=== PATIENT | female | born 1960 | race Caucasian/White ===

== ENCOUNTER 2023-01-30 08:46 | Outpatient (OUT) | payer BC, SELFPAY ==
[2023-01-30 11:35] LABS: Alanine Aminotransferase 30 U/L (14-59); Albumin Globulin Ratio 0.9; Albumin Level 3.8 g/dL (3.4-5.0); Alkaline Phosphatase 77 U/L (46-116); Anion Gap 14.1; Aspartate Amino Transferase 12 U/L (15-37); BUN Creatinine Ratio 19.1; Bilirubin Total 0.9 mg/dL (0.2-1.0); Calcium 9.3 mg/dL (8.5-10.1); Carbon Dioxide 29.3 mmol/L (21.0-32.0); Chloride 99 mmol/L (98-107); Chol HDL Ratio 3.2; Cholesterol 156 mg/dL (<=200); Estimated GFR (African America >60 (>=60); Estimated GFR (Non-African Ame >60 (>=60); Glucose 126 mg/dL (74-106); HDL Cholesterol 49 mg/dL (40-60); Potassium 4.4 mmol/L (3.5-5.1); Sodium 138 mmol/L (136-145); Thyroid Stimulating Hormone 1.231 uIU/mL (0.358-3.740); Total Protein 7.8 g/dL (6.4-8.2); Triglycerides 95 mg/dL (<=150)
--- OUTSIDE RECORDS SUMMARY | 2023-02-27 21:15 | XMS_ITS | CCD ---
Author Name Unknown Address [address] [place] [address] Organization [facility] Care Team Providers Care Artist Scientific Name Role Phone Gris Graham Primary Care Provider DARCI CARTER Attending Unavailable DARCI CARTER Attending Unavailable DARCI CARTER Attending Unavailable Gris Graham MD Primary Care Provider Gris Graham MD Primary Care Provider DR HITESH PEREZ V Consulting Unavailable SHAIKH Kimberly TOVAR Admitting Unavailable SHAIKH Kimberly TOVAR Attending Unavailable SHAIKH Kimberly TOVAR Consulting Unavailable SHAIKH Kimberly TOVAR Attending Unavailable DR HITESH PEREZ V Consulting Unavailable SHAIKH Kimberly TOVAR Admitting Unavailable SHAIKH Kimberly TOVAR Consulting Unavailable Shaikh Tovar MD Primary Care Provider [phone] SHARRI CAMEJO Attending Unavailabl e SHAIKH TOVAR Primary Care Unavailable Allergies Allergy Classification Reported Allergen(s) Allergy Type Date of Onset Reaction(s) Facility Adhesive Tape (1 source) Adhesive Tape Substance Allergy 4 [employer] Work Phone: Angiotensin Converting Enzyme (SOPHIE) Inhibitors (1 source) Lisinopril Drug Allergy 7 [employer] Work Phone: Penicillins (antibiotic) (1 source) Penicillins Drug Allergy 4 [employer] pineapple allergenic extract (1 source) pineapple allergenic extract Drug Allergy 5 Anaphylaxis, Shortness Of Breath [facility] (12 sources) Adhesive Tape Propensity to adverse reactions to drug 4 [place] (12 sources) Lisinopril Drug Allergy 7 [place], [place] (11 sources) Penicillins Propensity to adverse reactions to drug 4 [place] (12 sources) pineapple allergenic extract Drug Allergy 5 Anaphylaxis, Shortness Of Breath [place] (1 source) Adhesive Tape; Translations: [Tape] Propensity to adverse reactions (disorder) [facility] (1 source) Penicillin; Translations: [penicillin] Drug Allergy [facility] (1 source) pinapple; Translations: [pinapple] Propensity to adverse reactions to food (disorder) [facility] (1 source) lisinipril; Translations: [lisinipril] Propensity to adverse reactions to drug (disorder) [facility] (1 source) Penicillins Propensity to adverse reactions to drug 4 [facility] Medications Current Medications Medication Drug Class(es) Dates Sig (Normalized) Sig (Original) acetaminophen 325 mg oral tablet (1 source) Start: 04-21-2020 acetaminophen (TYLENOL) tablet 650 mg acetaminophen 325 mg / HYDROcodone bitartrate 5 mg oral tablet (3 sources) Opioid Agonist Start: 04-21-2020 End: 04-24-2020 take 1 tablet by mouth every six hours as needed for pain, then take 1 tablet by mouth as needed for pain HYDROcodone-acetami nophen (NORCO) 5-325 MG per tablet Indications: Abnormal uterine bleeding due to endometrial polyp Take 1 tablet by mouth every 6 hours as needed for Pain for up to 3 days. Intended supply: 3 days. Take lowest dose possible to manage pain 10 tablet 0 04/21/2020 04/24/2020 Active Start: 04-21-2020 HYDROcodone-ac etaminophen (NORCO) 5-325 MG per tablet 1 tablet Start: 04-21-2020 End: 04-21-2020 HYDROcodone-acetaminophen (N ORCO) 5-325 MG per tablet 1 tablet 200 actuat albuterol 0.09 mg/actuat metered dose inhaler (4 sources) beta2-Adrenergic Agonist Start: 04-12-2018 take 2 puff(s) by inhalation every six hours as needed for wheezing albuterol sulfate HFA (PROAIR HFA) 108 (90 Base) MCG/ACT inhaler Inhale 2 puffs into the lungs every 6 hours as needed for Wheezing 1 Inhaler 3 04/12/2018 Active Start: 04-12-2018 take 2 puff(s) by in halation every six hours as needed for wheezing albuterol sulfate HFA (PROAIR HFA) 108 (90 Base) MCG/ACT inhaler Inhale 2 puffs into the lungs every 6 hours as needed for Wheezing 1 Inhaler 3 04/12/2018 Active albuterol sulfate HFA (PROAIR HFA) 108 (90 Base) MCG/ACT inhaler (1 source) Start: 04-12-2018 take 2 puff(s) by inhalation every six hours as needed for wheezing albuterol sulfate HFA (PROAIR HFA) 108 (90 Base) MCG/ACT inhaler Inhale 2 puffs into the lungs every 6 hours as needed for Wheezing 1 Inhaler 3 04/12/2018 Active apixaban 5 mg oral tablet (14 sources) Factor Xa Inhibitor Start: 01-05-2022 take 1 tablet by mouth twice daily apixaban (ELIQUIS) 5 MG TABS tablet TAKE 1 TABLET BY MOUTH TWICE A DAY 60 tablet 1 01/05/2022 Active Start: 07-23-2020 take 1 tablet by keith th twice daily apixaban (ELIQUIS) 5 MG TABS tablet TAKE 1 TABLET BY MOUTH TWICE A DAY 60 tablet 1 07/23/2020 Active Start: 05-28-2020 take 1 tablet by keith th twice daily apixaban (ELIQUIS) 5 MG TABS tablet TAKE 1 TABLET BY MOUTH TWICE A DAY 60 tablet 1 05/28/2020 Active Start: 04-21-2020 take 1 tablet by keith th twice daily apixaban (ELIQUIS) 5 MG TABS tablet TAKE 1 TABLET BY MOUTH TWICE A DAY 90 tablet 0 04/21/2020 Active Start: 03-25-2020 End: 04-21-2020 take 1 tablet by mouth twice daily apixaban (ELIQUIS) 5 MG TABS tablet TAKE 1 TABLET BY MOUTH TWICE A DAY 90 tablet 0 03/25/2020 04/21/2020 Discontinued Start: 09-22-2019 take 1 tablet by keith th twice daily apixaban (ELIQUIS) 5 MG TABS tablet TAKE 1 TABLET BY MOUTH TWICE A DAY 60 tablet 3 09/22/2019 Active Start: 05-01-2019 take 1 tablet by keith th twice daily apixaban (ELIQUIS) 5 MG TABS tablet TAKE 1 TABLET BY MOUTH TWICE A DAY 60 tablet 3 05/01/2019 Active Start: 01-20-2019 take 1 tablet by keith th twice daily ELIQUIS 5 MG TABS tablet TAKE 1 TABLET BY MOUTH TWICE A DAY 60 tablet 3 01/20/2019 Active Start: 09-20-2018 take 1 tablet by keith th twice daily apixaban (ELIQUIS) 5 MG TABS tablet Take 1 tablet by mouth 2 times daily 60 tablet 3 09/20/2018 Active atorvastatin 20 mg oral tablet (13 sources) HMG-CoA Reductase Inhibitor Start: 12-06-2021 take 1 tablet by mouth once daily atorvastatin (LIPITOR) 20 MG tablet TAKE 1 TABLET BY MOUTH EVERY DAY 30 tablet 0 12/06/2021 Active Start: 07-08-2020 take 1 tablet by keith th once daily atorvastatin (LIPITOR) 20 MG tablet TAKE 1 TABLET BY MOUTH EVERY DAY 90 tablet 0 07/08/2020 Active Start: 01-19-2020 take 1 tablet by keith th once daily atorvastatin (LIPITOR) 20 MG tablet TAKE 1 TABLET BY MOUTH EVERY DAY 90 tablet 0 04/20/2020 Active Start: 07-25-2019 take 1 tablet by keith th once daily atorvastatin (LIPITOR) 20 MG tablet TAKE 1 TABLET BY MOUTH EVERY DAY 90 tablet 0 07/25/2019 Active Start: 06-21-2018 take 1 tablet by keith th once daily atorvastatin (LIPITOR) 20 MG tablet Take 1 tablet by mouth daily 90 tablet 3 06/21/2018 Active 24 hr buPROPion hydrochloride 300 mg extended release oral tablet (13 sources) Aminoketone Start: 03-25-2021 take 1 tablet by mouth once daily in the morning buPROPion (WELLBUTRIN XL) 300 MG extended release tablet TAKE 1 TABLET BY MOUTH EVERY DAY IN THE MORNING 90 tablet 0 03/25/2021 Active Start: 07-08-2020 take 1 tablet by keith th once daily in the morning buPROPion (WELLBUTRIN XL) 300 MG extended release tablet TAKE 1 TABLET BY MOUTH EVERY DAY IN THE MORNING 90 tablet 0 07/08/2020 Active Start: 01-19-2020 take 1 tablet by keith th once daily in the morning buPROPion (WELLBUTRIN XL) 300 MG extended release tablet TAKE 1 TABLET BY MOUTH EVERY DAY IN THE MORNING 90 tablet 0 04/20/2020 Active Start: 07-25-2019 take 1 tablet by keith th once daily in the morning buPROPion (WELLBUTRIN XL) 300 MG extended release tablet TAKE 1 TABLET BY MOUTH EVERY DAY IN THE MORNING 90 tablet 0 07/25/2019 Active Start: 12-23-2018 buPROPion (WEL LBUTRIN XL) 300 MG extended release tablet TAKE 1 TABLET EVERY MORNING 90 tablet 0 12/23/2018 Active Start: 11-21-2018 buPROPion (WEL LBUTRIN XL) 300 MG extended release tablet TAKE 1 TABLET EVERY MORNING 90 tablet 0 11/21/2018 Active calcium chloride 0.0014 meq/ml / potassium chloride 0.004 meq/ml / sodium chloride 0.103 meq/ml / sodium lactate 0.028 meq/ml injectable solution (2 sources) Start: 04-21-2020 delia perez rs infusion carvedilol 6.25 mg oral tablet (13 sources) alpha-Adrenergi c Irish, beta-Adrenergic Irish Start: 12-06-2021 take 1 tablet by mouth twice daily at mealtime carvedilol (COREG) 6.25 MG tablet TAKE 1 TABLET BY MOUTH TWICE A DAY WITH MEALS 60 tablet 0 12/06/2021 Active Start: 07-08-2020 take 1 tablet by keith twice daily at mealtime carvedilol (COREG) 6.25 MG tablet TAKE 1 TABLET BY MOUTH TWICE A DAY WITH MEALS 180 tablet 0 07/08/2020 Active Start: 01-19-2020 take 1 tablet by keith th twice daily at mealtime carvedilol (COREG) 6.25 MG tablet TAKE 1 TABLET BY MOUTH TWICE A DAY WITH MEALS 180 tablet 0 04/20/2020 Active Start: 07-25-2019 carvedilol (CO REG) 6.25 MG tablet TAKE 1 TABLET TWICE DAILY WITH MEALS 180 tablet 0 07/25/2019 Active Start: 12-23-2018 carvedilol (CO REG) 6.25 MG tablet TAKE 1 TABLET TWICE DAILY WITH MEALS 180 tablet 0 12/23/2018 Active Start: 11-21-2018 carvedilol (CO REG) 6.25 MG tablet TAKE 1 TABLET TWICE DAILY WITH MEALS 180 tablet 0 11/21/2018 Active doxycycline hyclate 100 mg oral capsule (1 source) Tetracycline-class Drug Start: 11-22-2018 End: 12-06-2018 take 1 capsule by mouth twice daily doxycycline hyclate (VIBRAMYCIN) 100 MG capsule Take 1 capsule by mouth 2 times daily for 14 days 28 capsule 0 11/22/2018 12/06/2018 Active 2 ml fentaNYL 0.05 mg/ml injection (2 sources) Opioid Agonist Start: 04-21-2020 fentaNYL (SUBLIMAZE) injection 50 mcg Start: 04-21-2020 fentaNYL (SUBL IMAZE) injection 25 mcg FLUoxetine 20 mg oral capsule (13 sources) Serotonin Reuptake Inhibitor Start: 06-30-2021 take 1 capsule by mouth once daily FLUoxetine (PROZAC) 20 MG capsule Take 1 capsule by mouth daily 90 capsule 3 06/30/2021 Active Start: 07-08-2020 take 1 capsule by mo uth once daily FLUoxetine (PROZAC) 20 MG capsule TAKE 1 CAPSULE BY MOUTH EVERY DAY 90 capsule 0 07/08/2020 Active Start: 01-19-2020 take 1 capsule by mo uth once daily FLUoxetine (PROZAC) 20 MG capsule TAKE 1 CAPSULE BY MOUTH EVERY DAY 90 capsule 0 04/20/2020 Active Start: 07-25-2019 take 1 capsule by mo uth once daily FLUoxetine (PROZAC) 20 MG capsule TAKE 1 CAPSULE BY MOUTH EVERY DAY 90 capsule 0 07/25/2019 Active Start: 12-23-2018 FLUoxetine (RI OZAC) 20 MG capsule TAKE 1 CAPSULE DAILY 90 capsule 0 12/23/2018 Active Start: 11-21-2018 FLUoxetine (RI OZAC) 20 MG capsule TAKE 1 CAPSULE DAILY 90 capsule 0 11/21/2018 Active hydroCHLOROthiazide 25 mg / spironolactone 25 mg oral tablet (13 sources) Thiazide Diuretic, Aldosterone Antagonist Start: 03-25-2021 take 2 tablets by mouth once daily spironolactone-hydroCHLOROthiazide (ALDACTAZIDE) 25-25 MG per tablet TAKE 2 TABLETS BY MOUTH EVERY DAY 180 tablet 0 03/25/2021 Active Start: 07-08-2020 take 2 tablets by mouth once daily spironolactone-hydroCHLOROthiazide (ALDACTAZIDE) 25-25 MG per tablet TAKE 2 TABLETS BY MOUTH EVERY DAY 180 tablet 0 07/08/2020 Active Start: 01-19-2020 take 2 tablets by mouth once daily spironolactone-hydroCHLOROthiazide (ALDACTAZIDE) 25-25 MG per tablet TAKE 2 TABLETS BY MOUTH EVERY DAY 180 tablet 0 04/20/2020 Active Start: 05-01-2019 take 2 tablets by mouth once daily spironolactone-hydrochlorothiazide (ALDACTAZIDE) 25-25 MG per tablet TAKE 2 TABLETS BY MOUTH EVERY DAY 180 tablet 0 05/01/2019 Active Start: 01-28-2019 spironolactone -hydrochlorothiazide (ALDACTAZIDE) 25-25 MG per tablet TAKE 2 TABLETS DAILY 180 tablet 0 01/28/2019 Active Start: 11-21-2018 spironolactone -hydrochlorothiazide (ALDACTAZIDE) 25-25 MG per tablet TAKE 2 TABLETS DAILY 180 tablet 0 11/21/2018 Active metFORMIN hydrochloride 500 mg oral tablet (13 sources) Biguanide Start: 07-03-2021 take 1 tablet by mouth twice daily at mealtime metFORMIN (GLUCOPHAGE) 500 MG tablet TAKE 1 TABLET BY MOUTH TWICE A DAY WITH MEALS 180 tablet 0 07/03/2021 Active Start: 07-08-2020 take 1 tablet by keith th twice daily at mealtime metFORMIN (GLUCOPHAGE) 500 MG tablet TAKE 1 TABLET BY MOUTH TWICE A DAY WITH MEALS 180 tablet 0 07/08/2020 Active Start: 01-19-2020 take 1 tablet by keith th twice daily at mealtime metFORMIN (GLUCOPHAGE) 500 MG tablet TAKE 1 TABLET BY MOUTH TWICE A DAY WITH MEALS 180 tablet 0 04/20/2020 Active Start: 07-25-2019 metFORMIN (GLU COPHAGE) 500 MG tablet TAKE 1 TABLET TWICE DAILY WITH MEALS 180 tablet 0 07/25/2019 Active Start: 06-21-2018 take 1 tablet by keith th twice daily at mealtime metFORMIN (GLUCOPHAGE) 500 MG tablet Take 1 tablet by mouth 2 times daily (with meals) 180 tablet 3 06/21/2018 Active 2 ml metoclopramide 5 mg/ml prefilled syringe (1 source) Dopamine-2 Receptor Antagonist Start: 04-21-2020 End: 04-21-2020 metoclopramide (REGLAN) injection 10 mg nystatin 100 unt/mg topical powder (10 sources) Polyene Antifungal Start: 02-13-2020 nystatin (MYCOSTATIN) [id number] UNIT/GM powder Indications: Intertrigo Apply 3 times daily as needed for skin rash 1 Bottle 5 02/13/2020 Active 24 hr oxybutynin chloride 5 mg extended release oral tablet (13 sources) Cholinergic Muscarinic Antagonist Start: 11-07-2021 take 1 tablet by mouth once daily oxybutynin (DITROPAN-XL) 5 MG extended release tablet Indications: Irritable bladder TAKE 1 TABLET BY MOUTH EVERY DAY 30 tablet 3 11/07/2021 Active Start: 07-06-2020 take 1 tablet by keith th once daily oxybutynin (DITROPAN-XL) 5 MG extended release tablet Indications: Irritable bladder TAKE 1 TABLET BY MOUTH EVERY DAY 90 tablet 3 07/06/2020 Active Start: 07-16-2019 oxybutynin (DI TROPAN-XL) 5 MG extended release tablet Indications: Irritable bladder TAKE 1 TABLET DAILY 90 tablet 3 07/16/2019 Active Start: 06-27-2018 take 1 tablet by keith th once daily oxybutynin (DITROPAN-XL) 5 MG extended release tablet Indications: Irritable bladder TAKE ONE TABLET BY MOUTH DAILY 90 tablet 4 06/27/2018 Active predniSONE 20 mg oral tablet (1 source) Start: 03-25-2021 take 1 tablet by mouth twice daily predniSONE (DELTASONE) 20 MG tablet TAKE 1 TABLET BY MOUTH TWICE A DAY FOR 5 DAYS 10 tablet 0 03/25/2021 Active Promethazine (2 sources) Phenothiazine Start: 04-21-2020 promethazine (PHENERGAN) tablet 12.5 mg Start: 04-21-2020 End: 04-21-2020 promethazine (PHENERGAN) inj ection 6.25 mg 3 ml sodium chloride 9 mg/ml injection (2 sources) Start: 04-21-2020 sodium chlorid e flush 0.9 % injection 10 mL Completed/Discontinued Medications Medication Drug Class(es) Dates Sig (Normalized) Sig (Original) ciprofloxacin 250 mg oral tablet (1 source) Quinolone Antimicrobial Start: 04-16-2020 End: 04-23-2020 take 1 tablet by mouth twice daily ciprofloxacin (CIPRO) 250 MG tablet Indications: Urinary tract infection without hematuria, site unspecified Take 1 tablet by mouth 2 times daily for 7 days 14 tablet 0 04/16/2020 04/23/2020 Suspended iopamidol (ISOVUE-370) 76 % injection 75 mL (1 source) Start: 06-15-2020 End: 06-15-2020 iopamidol (ISOVUE-370) 76 % injection 75 mL Problems Active Problems Problem Classification Problem Date Documented Da te Episodic/Chronic Complication of device; implant or graft (1 source) Mechanical complication of internal orthopedic device; Translations: [Other mechanical complication of internal orthopedic device, unspecified orthopedic device type, initial encounter ([facility])] Episodic Disorders of lipid metabolism (14 sources) Hyperlipidemia; Translations: [Hyperlipidemia, unspecified] Onset: 08-31-2014 08-31-2014 Chronic Essential hypertension (18 sources) Essential hypertension; Translations: [Essential (primary) hypertension] Onset: 05-21-2014 12-10-2014 Chronic Genitourinary symptoms and ill-defined conditions (1 source) Dysuria; Translations: [Dysuria] Episodic Menopausal disorders (1 source) Postmenopausal bleeding; Translations: [PMB (postmenopausal bleeding)] Chronic Mood disorders (20 sources) Moderate major depression, single episode; Translations: [Recurrent major depression in remission] Onset: 12-15-2014 Resolved: 01-25-2017 07-13-2017 Chronic Other female genital disorders (8 sources) Abnormal uterine and vaginal bleeding, unspecified; Translations: [Abnormal uterine bleeding due to endometrial polyp] 04-21-2020 Chronic Other nutritional; endocrine; and metabolic disorders (13 sources) Morbid obesity; Translations: [Morbid (severe) obesity due to excess calories] Onset: 05-21-2014 09-19-2017 Chronic Phlebitis; thrombophlebitis and thromboembolism (3 sources) Chronic deep venous thrombosis of right lower extremity; Translations: [Chronic embolism and thrombosis of unspecified deep veins of right lower extremity] Onset: 12-13-2015 12-13-2015 Chronic Phlebitis; thrombophlebitis and thromboembolism (20 sources) Acute deep venous thrombosis of right lower extremity; Translations: [Chronic deep venous thrombosis of right lower extremity] Onset: 11-19-2015 Resolved: 05-25-2017 05-25-2017 Residual codes; unclassified (13 sources) Obstructive sleep apnea syndrome; Translations: [Obstructive sleep apnea (adult) (pediatric)] Onset: 05-25-2017 05-25-2017 Chronic Skin and subcutaneous tissue infections (1 source) Cellulitis of lower limb; Translations: [Bilateral cellulitis of lower leg] Episodic Superficial injury; contusion (2 sources) Contusion of right great toe; Translations: [Contusion of right great toe without damage to nail, initial encounter] Onset: 11-16-2022 Episodic Past or Other Problems Problem Classification Problem Date Documented Da te Episodic/Chronic Immunizations and screening for infectious disease (1 source) Contact with or exposure to other viral diseases; Translations: [Exposure to COVID-19 virus] Onset: 04-13-2021 04-13-2021 Episodic Other lower respiratory disease (1 source) Cough; Translations: [Cough] Onset: 04-13-2021 Resolved: 05-13-2021 05-13-2021 Episodic Other screening for suspected conditions (not mental disorders or infectious disease) (4 sources) Patient encounter status; Translations: [Encounter for screening for malignant neoplasm of colon] Onset: 03-26-2013 Resolved: 01-07-2018 01-07-2018 Episodic Other upper respiratory disease (1 source) Frontal sinus pain; Translations: [Other specified disorders of nose and nasal sinuses] Onset: 04-13-2021 04-13-2021 Episodic Phlebitis; thrombophlebitis and thromboembolism (3 sources) Acute deep venous thrombosis of right lower extremity; Translations: [Acute embolism and thrombosis of unspecified deep veins of right lower extremity] Onset: 11-19-2015 Resolved: 05-25-2017 05-25-2017 Episodic Residual codes; unclassified (3 sources) Edema of lower extremity; Translations: [Bilateral leg edema] Onset: 03-15-2018 03-15-2018 Episodic Residual codes; unclassified (11 sources) Localized edema; Translations: [Bilateral lower limb edema] Onset: 03-15-2018 03-15-2018 Episodic Unclassified (14 sources) Patient encounter status; Translations: [Screening for colorectal cancer] Onset: 03-26-2013 Resolved: 01-07-2018 01-07-2018 Results Test Name Value Interpretation Reference Range Facil ity XR TOE RIGHT (MIN 2 VIEWS)on 11-16-2022 XR TOE RIGHT (MIN 2 VIEWS) EXAMINATION: FIVE XRAY VIEWS OF THE RIGHT TOE 11/15/2022 9:52 pm COMPARISON: 06/15/2020 CT right foot HISTORY: ORDERING SYSTEM PROVIDED HISTORY: TECHNOLOGIST PROVIDED HISTORY: Patient in ER waiting room Specify which digit to image->First (Thumb/Great Toe) FINDINGS: Postsurgical changes of the midfoot. A screw fragment is seen within the medial aspect of the midfoot no acute fractures or dislocations are identified. Tarsal metatarsal alignment is normal. 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 Mild soft tissue swelling is seen along the medial aspect of the foot. IMPRESSION: 1. Mild degenerative changes of the right great toe without evidence of acute osseous abnormality. 2. Postsurgical changes of the midfoot. A screw fragment is seen within the medial aspect of the midfoot with adjacent screw tract identified. 3. Mild soft tissue swelling is seen along the medial aspect of the foot. Interpreted by: Tiarra Tello MD Signed by: Tiarra Tello MD 11/15/22 Final result Normal Emy Mota l XR TOE RIGHT (MIN 2 VIEWS)on 11-15-2022 1. Mild degenerative changes of the right great toe without evidence of acute osseous abnormality. 2. Postsurgical changes of the midfoot. A screw fragment is seen within the medial aspect of the midfoot with adjacent screw tract identified. 3. Mild soft tissue swelling is seen along the medial aspect of the foot. [facility] RIS CONSOLIDATE D EXAMINATION: FIVE XRAY VIEWS OF THE RIGHT TOE 11/15/2022 9:52 pm COMPARISON: 06/15/2020 CT right foot HISTORY: ORDERING SYSTEM PROVIDED HISTORY: TECHNOLOGIST PROVIDED HISTORY: Patient in ER waiting room Specify which digit to image->First (Thumb/Great Toe) FINDINGS: Postsurgical changes of the midfoot. A screw fragment is seen within the medial aspect of the midfoot no acute fractures or dislocations are identified. Tarsal metatarsal alignment is normal. 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 Mild soft tissue swelling is seen along the medial aspect of the foot. [facility] RIS CONSOLIDATE D Tiarra Tello MD - 11/15/2022 EXAMINATION: FIVE XRAY VIEWS OF THE RIGHT TOE 11/15/2022 9:52 pm COMPARISON: 06/15/2020 CT right foot HISTORY: ORDERING SYSTEM PROVIDED HISTORY: TECHNOLOGIST PROVIDED HISTORY: Patient in ER waiting room Specify which digit to image->First (Thumb/Great Toe) FINDINGS: Postsurgical changes of the midfoot. A screw fragment is seen within the medial aspect of the midfoot no acute fractures or dislocations are identified. Tarsal metatarsal alignment is normal. 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 Mild soft tissue swelling is seen along the medial aspect of the foot. IMPRESSION: 1. Mild degenerative changes of the right great toe without evidence of acute osseous abnormality. 2. Postsurgical changes of the midfoot. A screw fragment is seen within the medial aspect of the midfoot with adjacent screw tract identified. 3. Mild soft tissue swelling is seen along the medial aspect of the foot. [facility] Radiology Study observation (narrative) [facility] XR TOE RIGHT (MIN 2 VIEWS)Or dered By: Tiarra Tello on 11-15-2022 [facility] Work Phone: CBC AUTO DIFFon 02-09-2022 BASO # 0.0 103/ul Normal 0.0-0.1 [facility] Comment on above: Performed By: #### C BC #### [facility] [address] [place] [address] Dr. Judy Silverio Basophils/100 WBC (Bld) 0.3 % Normal 0.2-2.0 [facility] Comment on above: Performed By: #### C BC #### [facility] [address] [address] [address] Judy Silverio EO # 0.1 103/ul Normal 0.0-0.7 [facility] Comment on above: Performed By: #### C BC #### [facility] [address] [place] [address] Dr. Judy Silverio Eosinophils/100 WBC (Bld) 1.9 % Normal 0.9-7.0 [facility] Comment on above: Performed By: #### C BC #### [facility] [address] [place] [address] Dr. Judy Silverio Erythrocyte distribution wid th (RBC) [Ratio] 14.8 % Normal 11.0-15.0 [facility] Comment on above: Performed By: #### C BC #### [facility] [address] [place] [address] Dr. Judy Silverio Hematocrit (Bld) [Volume fraction] 39.7 % Normal 3 6.0-48.0 [facility] Comment on above: Performed By: #### C BC #### [facility] [address] [place] [address] Dr. Judy Silverio Hemoglobin (Bld) [Mass/Vol] 13.0 g/dL Normal 12.0-16. 0 [facility] Comment on above: Performed By: #### C BC #### [facility] [address] [place] [address] Dr. Judy Silverio IG # 0.03 10e3/ul Normal 0.00-0.03 [facility] Comment on above: Performed By: #### C BC #### [facility] [address] [place] [address] Dr. Judy Silverio IG % 0.4 % Normal 0.0-0.5 [facility] Comment on above: Performed By: #### C BC #### [facility] [address] [place] [address] Dr. Judy Silverio LYMPH # 1.2 103/ul Normal 1.2-3.8 The [facility] Comment on above: Performed By: #### C BC #### [facility] [address] [place] [address] Dr. Judy Silverio Lymphocytes/100 WBC (Bld) 17.3 % Critically low 20.5-6 0.0 [facility] Comment on above: Performed By: #### C BC #### [facility] [address] [place] [address] Dr. Judy Silverio MANUAL DIFF REQ NO Normal The [facility] Comment on above: Performed By: #### C BC #### [facility] [address] [place] [address] Dr. Judy Silverio MCH (RBC) [Entitic mass] 28.2 pg Normal 26.7-34.0 [facility] Comment on above: Performed By: #### C BC #### [facility] [address] [place] [address] Dr. Judy Silverio MCHC (RBC) [Mass/Vol] 32.7 g/dL Normal 29.9-35.2 [facility] Comment on above: Performed By: #### C BC #### [facility] [address] [place] [address] Dr. Judy Silverio MCV (RBC) [Entitic vol] 86.1 fL Normal 81.0-99.0 [facility] Comment on above: Performed By: #### C BC #### [facility] [address] [place] [address] Dr. Judy Silverio MONO # 0.4 103/ul Normal 0.3-0.8 [facility] Comment on above: Performed By: #### C BC #### [facility] [address] [place] [address] Dr. Judy Silverio Monocytes/100 WBC (Bld) 6.3 % Normal 1.7-12.0 [facility] Comment on above: Performed By: #### C BC #### [facility] [address] [place] [address] Dr. Judy Silverio NEUT # 5.0 103/ul Normal 1.4-6.5 The [facility] Comment on above: Performed By: #### C BC #### [facility] [address] [place] [address] Dr. Judy Silverio Neutrophils/100 WBC (Bld) 73.8 % Normal 43.0-75.0 [facility] Comment on above: Performed By: #### C BC #### [facility] [address] [place] [address] Dr. Judy Silverio Platelet mean volume (Bld) [Entitic vol] 9.8 fL Normal 9.5-13.5 [facility] Comment on above: Performed By: #### C BC #### [facility] [address] [place] [address] Dr. Judy Silverio PLT 234 103/ul Normal 150-450 [facility] Comment on above: Performed By: #### C BC #### [facility] [address] [place] [address] Dr. Judy Silverio RBC 4.61 106/ul Normal 4.20-5.40 [facility] Comment on above: Performed By: #### C BC #### [facility] [address] [place] [address] Dr. Judy Silverio WBC 6.7 103/ul Normal 4.0-11.0 [facility] Comment on above: Performed By: #### C BC #### [facility] [address] [place] [address] Dr. Judy Silverio GLYCOHEMOGLOBIN A1Con 2021 ADA RECOMMENDATION SEE BELOW Normal [facility] Comment on above: Result Comment: ADA RECOMMENDED LIMIT 4.0 - 6.0 ADA THERAPEUTIC TARGET < 7.0 ACTION SUGGESTED > 7.0 Performed By: #### A 1C #### [facility] [address] [place] [address] Dr. Judy Silverio Glucose [Mass/Vol] 123 mg/dL Normal [facility] Comment on above: Performed By: #### A 1C #### [facility] [address] [place] [address] Dr. Judy Silverio HbA1c (Bld) [Mass fraction] 5.9 % Normal 4.5-6.2 [facility] Comment on above: Performed By: #### A 1C #### [facility] [address] [place] [address] Dr. Judy Silverio LIPID PROFILEon 02-09-2022 CHOL-HDL RATIO NORM SEE BELOW Normal [facility] Comment on above: Result Comment: 3.3 - 4.4 LOW RISK 4.4 - 7.1 AVERAGE RISK 7.1 - 11.0 MODERATE RISK >11.0 HIGH RISK Performed By: #### C MP, LIPID #### [facility] [address] [address] [address] Judy Silverio Cholesterol [Mass/Vol] 148 mg/dL Normal <=200 Th [facility] Comment on above: Performed By: #### C MP, LIPID #### [facility] [address] [address] [address] Judy Silverio Cholesterol in HDL [Mass/Vol] 49 mg/dL Normal 40-60 [facility] Comment on above: Performed By: #### C MP, LIPID #### [facility] [address] [address] [address] Judy Silverio Cholesterol in LDL [Mass/Vol] 73.8 mg/dL Normal [facility] Comment on above: Performed By: #### C MP, LIPID #### [facility] [address] [address] [address] Judy Silverio Cholesterol.total/Cholestero l in HDL [Mass ratio] 3.0 {ratio} Normal [facility] Comment on above: Performed By: #### C MP, LIPID #### [facility] [address] [place] [address] Dr. Judy Silverio HDL NORMAL > or = 60 mg/dl - LO W CARDIOVASCULAR RISK <40 mg/dl - HIGH CARDIOVASCULAR RISK Normal [facility] Comment on above: Performed By: #### C MP, LIPID #### [facility] [address] [address] [address] Judy Silverio LDL CALC NORMAL SEE BELOW Normal [facility] Comment on above: Result Comment: <100 mg/dl OPTIMAL 100 - 129 mg/dl NEAR OR ABOVE OPTIMAL 130 - 159 mg/dl BORDERLINE HIGH 160 - 189 mg/dl HIGH >190 mg/dl VERY HIGH Performed By: #### C MP, LIPID #### [facility] [address] [address] [address] Judy Silverio Triglyceride [Mass/Vol] 126 mg/dL Normal <=150 T [facility] Comment on above: Performed By: #### C MP, LIPID #### [facility] [address] [address] [address] Judy Silverio VLDL CALC 25.2 mg/dL Normal [facility] Comment on above: Performed By: #### C MP, LIPID #### [facility] [address] [place], [place] [address] Dr. Judy Silverio MG MAMM SCREEN 3D KANDICE CADon 02-09-2022 MG MAMM SCREEN 3D KANDICE CAD Patient: JENIFER VERGARA Exam Date: 02/09/2022 : 1960 Gender:F Ordering : SHAIKH Tanmay TOVAR . Admission #: [id number] Family : Order #: [id number] CLICK HERE TO VIEW EXAM RADIOLOGY REPORT PROCEDURE: MAMMOGRAM SCREENING 3D BILATERAL CAD COMPARISON: MAMMO KANDICE SCREEN, 02/28/2019. INDICATIONS: Screening mammography Calculator Name NCI Breast Cancer Risk Assessment Tool 5 Year Breast Cancer Risk Not Reported. Lifetime Breast Cancer Risk Not Reported. Personal Breast Cancer No Personal Ovarian Cancer No Treatments None Family Cancers None LOCATION: The [facility] BREAST COMPOSITION: Scattered areas fibroglandular density. FINDINGS: DIAGNOSTIC CATEGORY 2--BENIGN FINDING. NO CHANGE FROM COMPARISON. Scattered benign-appearing calcifications are present. Scattered benign-appearing lymph nodes are present. RIGHT BREAST: No significant suspicious finding. LEFT BREAST: No significant suspicious finding. RECOMMENDATIONS: ROUTINE MAMMOGRAM AND CLINICAL EVALUATION IN 12 MONTHS. PLEASE NOTE: A NORMAL MAMMOGRAM DOES NOT EXCLUDE THE POSSIBILITY OF BREAST CANCER. A CLINICALLY SUSPICIOUS PALPABLE LUMP SHOULD BE BIOPSIED. Dictated by: Hitesh Perez MD on 02/09/2022 at 14:32 Approved by: Hitesh Perez MD on 02/09/2022 at 14:34 Normal The [facility] PROF 14(COMP METB)on 022 Albumin [Mass/Vol] 3.8 g/dL Normal 3.4-5.0 [facility] Comment on above: Performed By: #### C MP, LIPID #### [facility] [address] [place], [place] [address] Dr. Judy Silverio Albumin/Globulin [Mass ratio] 1.0 {ratio} Normal [facility] Comment on above: Performed By: #### C MP, LIPID #### [facility] [address] [place], [place] [address] Dr. Judy Silverio ALP [Catalytic activity/Vol] 74 U/L Normal 46-116 [facility] Comment on above: Performed By: #### C MP, LIPID #### [facility] [address] [address] [address] Judy Silverio ALT [Catalytic activity/Vol] 26 U/L Normal 14-59 [facility] Comment on above: Performed By: #### C MP, LIPID #### [facility] [address] [address] [address] Judy Silverio Anion gap [Moles/Vol] 11.0 mmol/L Normal [facility] Comment on above: Performed By: #### C MP, LIPID #### [facility] [address] [address] [address] Juyd Silverio AST [Catalytic activity/Vol] 10 U/L Critically low 15- 37 [facility] Comment on above: Performed By: #### C MP, LIPID #### [facility] [address] [address] [address] Judy Silverio Bilirubin [Mass/Vol] 1.1 mg/dL Critically high 0.2-1.0 [facility] Comment on above: Performed By: #### C MP, LIPID #### [facility] [address] [address] [address] Judy Silverio Calcium [Mass/Vol] 9.1 mg/dL Normal 8.5-10.1 [facility] Comment on above: Performed By: #### C MP, LIPID #### [facility] [address] [address] [address] Judy Silverio Chloride [Moles/Vol] 101 mmol/L Normal 98-107 [facility] Comment on above: Performed By: #### C MP, LIPID #### [facility] [address] [address] [address] Judy Silverio CO2 [Moles/Vol] 29.1 mmol/L Normal 21.0-32.0 [facility] Comment on above: Performed By: #### C MP, LIPID #### [facility] [address] [address] [address] Judy Silverio Creatinine [Mass/Vol] 0.91 mg/dL Normal 0.55-1.02 [facility] Comment on above: Performed By: #### C MP, LIPID #### [facility] [address] [address] [address] Judy Silverio EGFR-AF MOSOTHO >60 Normal >=60 [facility] Comment on above: Performed By: #### C MP, LIPID #### [facility] [address] [address] [address] Judy Silverio EGFR-NON AF MOSOTHO >60 Normal >=60 [facility] Comment on above: Performed By: #### C MP, LIPID #### [facility] [address] [address] [address] Judy Silverio Globulin (S) [Mass/Vol] 3.7 g/dL Normal [facility] Comment on above: Performed By: #### C MP, LIPID #### [facility] [address] [place] [address] Dr. Judy Silverio Glucose [Mass/Vol] 79 mg/dL Normal 74-106 [facility] Comment on above: Performed By: #### C MP, LIPID #### [facility] [address] [place] [address] Dr. Judy Silverio Potassium [Moles/Vol] 4.1 mmol/L Normal 3.5-5.1 [facility] Comment on above: Performed By: #### C MP, LIPID #### [facility] [address] [place] [address] Dr. Judy Silverio Protein [Mass/Vol] 7.5 g/dL Normal 6.4-8.2 [facility] Comment on above: Performed By: #### C MP, LIPID #### [facility] [address] [place] [address] Dr. Judy Silverio Sodium [Moles/Vol] 137 mmol/L Normal 136-145 [facility] Comment on above: Performed By: #### C MP, LIPID #### [facility] [address] [address] [address] Judy Silverio Urea nitrogen [Mass/Vol] 19.0 mg/dL Critically high 7.0-18 .0 [facility] Comment on above: Performed By: #### C MP, LIPID #### [facility] [address] [place], [place] [address] Dr. Judy Silverio Urea nitrogen/Creatinine [Mass ratio] 20.9 mg/mg Normal The [facility] Comment on above: Performed By: #### C MP, LIPID #### [facility] [address] [place], [place] [address] Dr. Judy Silverio VC COMP CONSULTATIONon 02-09 VC COMP CONSULTATION Patient: Rozina VERGARA Exam Date: 02/09/2022 : 1960 Gender:F Ordering : SHAIKH Tanmay TOVAR . Admission #: [id number] Family : Order #: [id number] CLICK HERE TO VIEW EXAM RADIOLOGY REPORT PROCEDURE: VC VEIN CENTER CONSULTATION VEIN CENTER - OFFICE VISIT INITIAL COMPARISON: None. PROGRESS NOTES: 61-year-old female who presents with a multiyear history of lower extremity pain and swelling, this is significantly increased in the past 6 months. The patient describes leg pain and swelling rated as a 4 on a scale of 1-10. The patient's symptoms are significantly worse on the right. The patient describes heavy dull pain exacerbated by prolonged sitting and standing. The pain is partially relieved by leg elevation, over the counter oral analgesics and knee high compression stockings. The patient did have 1 episode of cellulitis 3 years ago requiring oral antibiotics. The patient denies any signs and symptoms to suggest arterial ischemia. The patient describes a family history significant for varicose veins in sister and mother. Patient has never smoked. No current alcohol or drug use. The patient is with 1 child. The patient has exercise twice per week. Past medical history is significant for depression, hyperlipidemia, hypertension, or active bladder, depression with anxiety. 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 See separate history and physical for medication list. Air treatment for varicose or spider veins. The patient has worn compression stockings for 5 years. Nursing notes were reviewed. After history and physical exam I discussed at length the pathophysiology of venous hypertension and possible treatments, therapies and strategies available. We discussed at length the importance of elevating the lower extremities above the level of the heart, increased physical activity and compression stocking use. We discussed conservative therapy with compression stockings, surgical interventions including ligation and stripping. Discussed intravenous laser ablation, micro foam chemical ablation and injection sclerotherapy length. Risks and benefits were discussed. I did discuss at length with the patient that her symptoms are likely multifactorial related to obesity, activity level, hypertension as well as her venous disease in the treatments likely would result in improvement but not resolution of her symptoms. Ultrasound venous reflux study performed the same day was discussed at length with the patient. The report demonstrates moderate bilateral great saphenous vein venous insufficiency with associated dilatation, right greater than left. Moderate to severe bilateral anterior accessory saphenous vein venous insufficiency. Bilateral incompetent toolmaker helper veins. Bilateral incompetent varicose veins. PHYSICAL EXAM: The right leg demonstrates scattered reticular and spider veins. Severe pitting edema below the knee. Skin thickening , erythema and scaling mid to lower leg circumferential, lipodermatosclerosis. The left leg demonstrates scattered reticular and spider veins. Severe pitting edema below the knee. Skin thickening in the mid to lower leg circumferential period Both thighs, legs and feet were symmetrically warm to the touch. Good posterior tibial and dorsalis pedis pulses were present bilaterally. IMPRESSION: 1. Bilateral great saphenous and anterior accessory saphenous vein venous insufficiency , right greater than left 2. Mild to moderate bilateral incompetent lower extremity varicose veins 3. Severe bilateral below knee lower extremity subcutaneous edema 4. No definite flow significant arterial disease 5. CEAP: C4b, p, Asp, Pr PLAN: 1. Intravenous laser ablation right great saphenous vein followed by right small saphenous vein, if the patient has significant improvement we may continue with treatment of the left leg 2. Micro foam chemical ablation right leg before left leg 3. Micro foam chemical ablation of reticular and spider veins 4. Continued use of bilateral knee high compression stocking 5. Elevated legs , weight loss increased physical activity for symptomatic relief Nurse notes, history and physical were reviewed and confirmed, see attached forms. The nurse was present throughout the physical exam and consultation Dictated by: Hitesh Perez MD on 02/09/2022 at 14:37 Approved by: Hitesh Perez MD on 02/09/2022 at 14:52 Normal The [facility] VC VENOUS REFLUX KANDICE LMTon 1 04-12-2021 VC VENOUS REFLUX KANDICE LMT Patient: JENIFER VERGARA Exam Date: 02/09/2022 : 1960 Gender:F Ordering : KimberlyShereen TOVAR . Admission #: [id number] Family : DR HITESH PEREZ M.D. Order #: [id number] CLICK HERE TO VIEW EXAM RADIOLOGY REPORT PROCEDURE: VEIN CENTER ULTRASOUND VENOUS REFLUX BILATERAL LIMTED COMPARISON: None. INDICATIONS: Localized edema R60.0 TECHNIQUE: Duplex imaging of the lower extremity to assess the deep and superficial venous system for the presence of deep or superficial venous incompetence and to document the location and severity of disease. The study includes evaluation of the great saphenous vein (GSV), anterior accessory saphenous vein (AASV) and small saphenous vein (SSV). Patient scanned in reverse Trendelenburg and standing. FINDINGS: RIGHT LOWER EXTREMITY: Saphenofemoral Junction Reflux: Yes 10.8mm 2.2 sec GSV: Diam (mm) Reflux/ Time (sec) Proximal Thigh 10.0 Yes 1.6 Mid Thigh 7.4 Yes 2.0 Distal Thigh 8.1 Yes 0.8 Prox Calf 6.6 Yes 1.3 Mid Calf 4.7 Yes 0.5 Saphenopopliteal Junction Reflux: 4.4mm No SSV: Proximal Calf 4.0 No Mid Calf 3.4 No AASV: Proximal Thigh 9.0 Yes 3.1 Mid Thigh 7.4 Yes 0.9 Distal Thigh Thrombi: No acute or chronic thrombus visualized Compressibility: Normal Flow: Normal Tie Loader: Mid/med calf 4.5mm with 0s reflux. Tech Note: Incompetent SFJ, GSV, and AASV. Patent varicose vein mid/med calf 4.2mm with 0.7s reflux. Patent varicose vein prox/med calf 5.3mm with 1.3s reflux. Patent varicose vein mid/med thigh off of GSV 5.6mm with 0.9s reflux. Patent varicose vein mid/ant thigh 5.1mm with 0.5s reflux. LEFT LOWER EXTREMITY: Saphenofemoral Junction Reflux: Yes 12.9 mm 2.2 sec GSV: Diam (mm) Reflux/Time (sec) Proximal Thigh 8.7 Yes 1.8 Mid Thigh 7.2 Yes 1.8 Distal Thigh 7.8 Yes 1.3 Prox Calf 4.9 No Mid Calf 2.6 No Saphenopopliteal Junction Relux: 5.4 mm No SSV: Proximal Calf 4.7 No Mid Calf 2.7 No AASV: Proximal Thigh 6.2 Yes 3.5 Mid Thigh 6.5 Yes 1.4 Distal Thigh Thrombi: No acute or chronic thrombus visualized Compressibility: Normal Flow: Normal Tie Loader: Dist/med calf 3.2mm with 0s reflux. Tech Note: Incompetent SFJ, GSV, and AASV. Patent varicose vein mid/med calf 3.6mm with 1.4s reflux. Patent varicose vein dist/med thigh 3.4mm with 0.7s reflux. CONCLUSION: 1. Moderate bilateral great saphenous vein venous insufficiency with associated dilatation 2. Moderate to severe bilateral anterior accessory saphenous vein venous insufficiency with associated dilatation 3. Bilateral incompetent toolmaker helper veins 4. Bilateral incompetent varicose veins Dictated by: Hitesh Perez MD on 02/09/2022 at 13:37 Approved by: Hitesh Perez MD on 02/09/2022 at 13:39 Normal The [facility] XR Foot 2 Views Righton 04- XR Foot 2 Views Right CLINICAL HISTORY: Intraoperative evaluation. EXAMINATION: Intraoperative frontal image of the right foot was obtained. Fluoroscopy time: 4 seconds. DOSE: 0.12 mGy FINDINGS: Image demonstrates multiple pins and fixating screw. Surgical hardware appears intact and in appropriate alignment. There is marked soft tissue swelling. There is no radiographic evidence of a complicating process. For further details, please see operative report. Final Dictated by: Braden Chong MD Dictated DT/TM: 06/17/2020 12:51 pm Signed by: Braden Chong MD Signed (Electronic Signature): 06/17/2020 12:52 pm (If Report Is Signed, Electronically Signed in Other Vendor System) Normal [facility] [place] [facility] .BF Cell Cnt RBC Aon 021 Fluid RBC Count 5796 /mcL Normal [facility] Comment on above: Performed By: #### . Body Fluid Cell Count RBC Auto #### [facility] [address] [place] [address] .BF Cell Cnt WBC Aon 021 Fluid WBC Count 53304 /mcL High 0-150 [facility] Comment on above: Performed By: #### . Body Fluid Cell Count WBC Auto #### [address] [address] .BF Diffon 06-16-2020 Fluid Mononuclear Cells 5 % Normal 0-78 B [facility] Comment on above: Performed By: #### . Body Fluid Differential #### [place] [id number] Fluid Other Cells 0 % Normal 0-10 [facility] Comment on above: Performed By: #### . Body Fluid Differential #### [place] [id number] Fluid Polynuclear Cells 95 % High 0-25 B [facility] Comment on above: Performed By: #### . Body Fluid Differential #### [place] [id number] BF Cell Counton 06-16-2020 Body Fluid Cell Cnt Type Synovial Normal [facility] Comment on above: Performed By: #### F LCC #### [place] [id number] C Sterile BFon 06-16-2020 C Sterile BF Final No growth at 48 hours. Gram Stain Many White Blood Cells No organisms seen. Normal [facility] Comment on above: Performed By: #### C SBF #### [place] [id number] Crystalson 06-16-2020 Crystals LM Nom (Urine sed) NoCrystals Seen Normal NoCrystals Seen [facility] Comment on above: Performed By: #### F LCA #### [address] [address] Non-Shingle Packer Cytology Reporton Non-Shingle Packer Cytology Report Clinical Information Procedure: right foot hardware removal Clinical History: unk NG Specimen A Synovial fluid Gross Description Synovial fluid consists of 0.5 mL of thick, viscous, white fluid which is centrifuged for concentration, washed with CytoLyt, re-spun and then 1 mL of specimen is added to PreservCyt for ThinPrep processing. Cell Block: No NG Micro The synovial fluid shows debris. There are rare neutrophils, but these may be due to contamination by blood. No malignant cells are seen. Diagnosis Synovial fluid, Thin Prep cytology: Debris and rare neutrophils. See microscopic description. Completed by: Екатерина Russell MD (Electronically signed by) 06/21/20 08:55 EDT Normal [facility] [place] [facility] Comment on above: Performed By: #### N GCR #### [facility] (DEFAULT) [address] [place] [id number] Operative Reporton Operative Report Indication for Surgery This is a 59-year-old female who underwent medial column fusion several years ago. She presented to the office recently with broken hardware along the medial aspect of the foot. She had a small superficial abscess that was drained. There was concern for possible infected surgical hardware. A CT scan was obtained. This did not demonstrate any abscess or osteomyelitis. There was a large ankle joint effusion noted. There was some concern for possible septic arthritis. Decision was made to go forward with hardware removal as well as open ankle arthrotomy for further evaluation of the ankle joint. The procedures were discussed with her at length including all potential risk, benefits, and complications. All of her questions were answered to her satisfaction. No guarantees were given as to the surgical outcome. Informed written consent was obtained. Preoperative Diagnosis 1. Painful hardware, right foot 2. Ankle joint effusion, right foot Postoperative Diagnosis Same as preoperative Operation Removal Hardware Extremity Lower, REMOVAL OF MEDIAL COLUMN PLATE AND SCREWSright ankle arthrotomy, Right, Foot Surgeon(s) Raul WEISS, Darci Seymour (Surgeon - Primary) Aviation Ordnance Officer Kika FARMER, Angelina Simon (Racking Technician) Anesthesia General Randall Lambert MD (Ranch Hand) Vesta Rea (Provider) Estimated Blood Loss 10 mL Findings See the narrative Specimen(s) Pathology Cytology Request (synovial fluid,AP Specimen) Complications None Technique The patient was brought from the preoperative area and placed on operating table in a supine position. Following induction of anesthesia, a tourniquet was placed. The operative lower extremity was scrubbed, prepped, and draped in usual sterile fashion. Esmarch bandage was utilized to exsanguinate the extremity. The tourniquet was inflated. The following procedure was then performed: Procedure #1: Open ankle arthrotomy, right: Attention was directed to the anteromedial aspect the patient's right ankle where an incision approximately 2 cm in length was made. This was deepened through subcutaneous layer to the level of the joint capsule. A 18-gauge spinal needle and 30 mL syringe were used to aspirate approximately 2 cc of synovial fluid from the ankle joint. This was sent for synovial fluid analysis and culture. The arthrotomy was then performed and the joint directly visualized. There was no evidence of any purulence. The joint fluid visualized was noted to be relatively clear and of normal viscosity. The articular surfaces of the talus and tibia were visualized and noted to be relatively normal in appearance. The arthrotomy site was copiously irrigated with lactated Ringer's and gentamicin solution utilizing a pulse facetor. Attention was then directed to procedure #2. Procedure #2: Hardware removal, right foot: Attention was directed to the medial aspect of his right foot where an incision was made along the medial column. This was deepened through subcutaneous layer with care taken to identify retract all vital neurovascular structures. Dissection was carried down to the level of the capsule and periosteum. A linear incision was made over the known location of the screw and plate hardware. The hardware was identified. The medial hardware was then removed with the exception of a deeply embedded screw tip near the middle cuneiform that was well within the confines of the bone. The hardware specimen the operative site. Removal was confirmed utilizing intraoperative C-arm fluoroscopy. No purulence or any significant soft tissue necrosis was encountered in this area. The wound was again copiously irrigated with lactated Ringer's and gentamicin solution. The deep tissues including the ankle joint capsule were closed utilizing 2-0 Vicryl in a simple erupted fashion. The subcutaneous tissues were reapproximated with 3-0 Vicryl. The skin was reapproximated with 3-0 nylon suture in a simple erupted fashion. The wounds were then dressed with Betadine soaked Adaptic, gauze, Lam, Kerlix, and Coban. The patient tolerated the procedure and anesthesia well and was transferred from the operating room to the PACU with vital signs stable and vascular status intact to the bilateral lower extremity. Following a period of postoperative monitoring, the patient will be discharged with appropriate wound care, ambulatory status, and follow-up instructions. Tourniquet Time Tourniquet Cuff 18x4 [id number], Leg lower (Right), Total Time 54 Sponge/Needle Count Correct at the end of the procedure Fluid Count Please see the anesthesia record Electronically signed by Darci Carter DPM 06/16/20 14:41 EDT Normal [facility] CT FOOT RIGHT W CONTRASTon 0 06-15-2020 1. Thick-walled syno vial enhancement of the anterior tibiotalar joint with moderate to large tibiotalar joint effusion. This raises the possibility of a septic joint if the clinical setting is appropriate. 2. Fusion of the subtalar joint with a partially threaded screw and partial osseous bridging of the subtalar joint. Medial sideplate and screws fusing the talus, navicular, medial cuneiform and proximal 1st metatarsal. Orthopedic antonio fusing the calcaneocuboid articulation. Hardware appears intact. 3. No acute fracture or aggressive osseous destruction. Degenerative changes as detailed above. 4. Severe plantar calcaneal spur. 5. Fluid in the posterior subtalar joint recess. Mild edema in the subcutaneous fat about the foot and ankle. [employer] Phone: EXAMINATION: CT OF T HE RIGHT FOOT WITH CONTRAST 06/15/2020 9:44 am TECHNIQUE: CT of the right foot was performed with the administration of intravenous contrast. Multiplanar reformatted images are provided for review. Dose modulation, iterative reconstruction, and/or weight based adjustment of the mA/kV was utilized to reduce the radiation dose to as low as reasonably achievable. COMPARISON: None. HISTORY ORDERING SYSTEM PROVIDED HISTORY: Other mechanical complication of internal orthopedic device, unspecified orthopedic device type, initial encounter ([facility]) TECHNOLOGIST PROVIDED HISTORY: EVAL FOR ABCESS 59-year-old female with orthopedic device; evaluate for abscess. FINDINGS: Bones: There is fusion of the subtalar joint with a partially threaded screw and partial osseous bridging of the subtalar joint. There is a medial sideplate and screws fusing the talus, navicular, medial cuneiform, and proximal 1st metatarsal. There are orthopedic antonio fusing the calcaneocuboid articulation. Hardware appears intact. No acute fracture. No aggressive osseous destruction. Subcortical cystic changes are seen in the midfoot and about the TMT joints. Severe plantar calcaneal spur. Glfy-vn-hxgbulct degenerative changes of the remainder of the midfoot and tarsometatarsal joints. No marginal erosions. Soft Tissue: Mild edema is seen within the subcutaneous fat about the foot and ankle. Visualized Achilles, peroneal, and extensor tendons are seen in their expected locations. Posterior tibialis tendon is difficult to assess due to artifact from the hardware. Flexor hallucis and digitorum longus tendons are seen in their expected locations. Mxvy-pf-baeksxol atrophy and fatty degeneration of the visualized musculature. Joint: Mild degenerative changes of the tibiotalar joint. Os trigonum variant/Stieda process at the posterior talus. Moderate to large tibiotalar joint effusion with synovial enhancement anteriorly. Fluid in the posterior subtalar joint recess. No intertarsal joint effusion. The ankle mortise appears intact. [employer] Work Phone: Devin, pn Incoming R adiant Results From [employer] - 06/15/2020 12:14 PM EDT EXAMINATION: CT OF THE RIGHT FOOT WITH CONTRAST 06/15/2020 9:44 am TECHNIQUE: CT of the right foot was performed with the administration of intravenous contrast. Multiplanar reformatted images are provided for review. Dose modulation, iterative reconstruction, and/or weight based adjustment of the mA/kV was utilized to reduce the radiation dose to as low as reasonably achievable. COMPARISON: None. HISTORY ORDERING SYSTEM PROVIDED HISTORY: Other mechanical complication of internal orthopedic device, unspecified orthopedic device type, initial encounter ([facility]) TECHNOLOGIST PROVIDED HISTORY: EVAL FOR ABCESS 59-year-old female with orthopedic device; evaluate for abscess. FINDINGS: Bones: There is fusion of the subtalar joint with a partially threaded screw and partial osseous bridging of the subtalar joint. There is a medial sideplate and screws fusing the talus, navicular, medial cuneiform, and proximal 1st metatarsal. There are orthopedic antonio fusing the calcaneocuboid articulation. Hardware appears intact. No acute fracture. No aggressive osseous destruction. Subcortical cystic changes are seen in the midfoot and about the TMT joints. Severe plantar calcaneal spur. Dthj-xo-dofbfeyl degenerative changes of the remainder of the midfoot and tarsometatarsal joints. No marginal erosions. Soft Tissue: Mild edema is seen within the subcutaneous fat about the foot and ankle. Visualized Achilles, peroneal, and extensor tendons are seen in their expected locations. Posterior tibialis tendon is difficult to assess due to artifact from the hardware. Flexor hallucis and digitorum longus tendons are seen in their expected locations. Uagy-bc-gvpnyeer atrophy and fatty degeneration of the visualized musculature. Joint: Mild degenerative changes of the tibiotalar joint. Os trigonum variant/Stieda process at the posterior talus. Moderate to large tibiotalar joint effusion with synovial enhancement anteriorly. Fluid in the posterior subtalar joint recess. No intertarsal joint effusion. The ankle mortise appears intact. IMPRESSION: 1. Thick-walled synovial enhancement of the anterior tibiotalar joint with moderate to large tibiotalar joint effusion. This raises the possibility of a septic joint if the clinical setting is appropriate. 2. Fusion of the subtalar joint with a partially threaded screw and partial osseous bridging of the subtalar joint. Medial sideplate and screws fusing the talus, navicular, medial cuneiform and proximal 1st metatarsal. Orthopedic antonio fusing the calcaneocuboid articulation. Hardware appears intact. 3. No acute fracture or aggressive osseous destruction. Degenerative changes as detailed above. 4. Severe plantar calcaneal spur. 5. Fluid in the posterior subtalar joint recess. Mild edema in the subcutaneous fat about the foot and ankle. [employer] Work Phone: [facility] Agon 06-14-2020 Employed in healthcare? Unknown Normal [facility] Comment on above: Performed By: #### C [id number] #### [facility] [address] [place] [address] Group care resident? Unknown [facility] Comment on above: Performed By: #### C [id number] #### [facility] [address] [place] [address] Hospitalized due to COVID-19? No Normal [facility] Comment on above: Performed By: #### C [id number] #### [address] [place] [address] In ICU? No Normal [facility] Comment on above: Performed By: #### C [id number] #### [address] [place] [address] Is this the first test for COVID? Unknown Normal [facility] Comment on above: Performed By: #### C [id number] #### [address] [place] [address] status? Not [facility] Comment on above: Performed By: #### C [id number] #### [address] [place] [address] SARS-Cov-2 Ag Normal Negative [facility] Comment on above: Result Comment: * Ne gative (Non-Reactive) * Negative results from patients with symptom onset outside of one to six days should be treated as presumptive. A false-negative test result may occur if the level of viral antigen in a sample is below the detection limit of the test or if the sample was collected or transported improperly; therefore, a negative test result does not eliminate the possibility of SARS-CoV-2 infection. Negative results should not be used as the sole basis for treatment or patient management decisions, including infection control decisions. Negative results should be considered in the context of a patient?s recent exposures, history and the presence of clinical signs and symptoms consistent with COVID-19. Negative ADDITIONAL INFORMATION: Testing performed on the Taggs0 using the SARS-CoV-2 Antigen test. Results are for the identification of SARS-CoV-2 nucleocapsid antigen. The [employer] DirectS SARS-CoV-2 Antigen test can detect both viable and non-viable SARS-CoV-2 material. The [employer] SARS-CoV-2 Antigen test performance depends on antigen load and may not correlate with other diagnostic methods performed on the same specimen. The performance of this test has not been evaluated for use in patients without signs and symptoms of respiratory infection. Test results should be considered in the context of all available clinical and diagnostic information, including patient history and other test results. In the [place], the Lead[employer] DirectS SARS-CoV-2 Antigen test is only for use under the Food and Drug Administration?s Emergency Use Authorization. HCP Fact Sheet: https://www.fda.gov/media/072225/download Patient Fact Sheet: https://www.fda.gov/media/922227/download Performed By: #### C D:[id number] #### [address] [address] Symptomatic as defined by CDC? No Normal [facility] Comment on above: Performed By: #### C [id number] #### [address] [address] Basic Metabolic Panelon 04-0 Anion gap [Moles/Vol] 14 mmol/L 9 - 17 mmol/L [employer] Phone: Bun/Cre Ratio 28 High 51 Give Work Phone: Calcium [Mass/Vol] 10.0 mg/dL 8.6 - 10.4 mg/dL [employer] Phone: Chloride [Moles/Vol] 95 mmol/L Low 98 - 107 mmol/L [employer] Phone: CO2 [Moles/Vol] 27 mmol/L 20 - 31 mmol/L [employer] Phone: Creatinine [Mass/Vol] 0.69 mg/dL 0.50 - 0.90 mg /dL [employer] Phone: GFR >60 >60 mL/min Georgina Goodman Phone: GFR Non- >60 >60 mL/min [facility] [employer] Work Phone: Glucose [Mass/Vol] 104 mg/dL High 70 - 99 mg/dL [facility] [employer] Work Phone: Interpretation and review of laboratory results Abnormal [facility] Work Phone: Potassium [Moles/Vol] 3.8 mmol/L 3.7 - 5.3 mmol /L [facility] [employer] Work Phone: Sodium [Moles/Vol] 136 mmol/L 135 - 144 mmol/L [facility] [employer] Phone: Urea nitrogen [Mass/Vol] 19 mg/dL 6 - 20 mg/d L [facility] [employer] Phone: C-Reactive Proteinon 06-11-2 021 CRP [Mass/Vol] 182.8 mg/L High 0.0 - 5.0 mg/L [facility] [employer] Phone: Interpretation and review of laboratory results Abnormal [facility] Work Phone: CBC Auto Differentialon 04-0 Basophils (Bld) [#/Vol] 10*3/uL M [facility] [employer] Phone: Basophils/100 WBC (Bld) 0 % 0 - 2 % [facility] [employer] Phone: Differential Type NOT REPORTED [facility] [employer] Phone: Eosinophils (Bld) [#/Vol] 0.09 10*3/uL [facility] [employer] Phone: Eosinophils/100 WBC (Bld) 1 % 1 - 4 % [facility] [employer] Phone: Erythrocyte distribution width (RBC) [Ratio] 14.6 % High 11.8 - 14.4 % [facility] [employer] Phone: Hematocrit (Bld) [Volume fraction] 36.5 % 36.3 - 47.1 % [employer] Phone: Hemoglobin (Bld) [Mass/Vol] 11.8 g/dL Low 11.9 - 15.1 g/dL [employer] Phone: Immature granulocytes (Bld) [#/Vol] 0.04 10*3/uL [employer] Phone: Immature granulocytes (Bld) [#/Vol] 1 % High 0 [employer] Phone: Interpretation and review of laboratory results Abnormal [employer] Work Phone: Lymphocytes (Bld) [#/Vol] 1.04 10*3/uL Low [facility] Phone: Lymphocytes/100 WBC (Bld) 12 % Low 24 - 43 % [facility] Phone: MCH (RBC) [Entitic mass] 27.8 pg 25.2 - 33.5 pg [employer] Phone: MCHC (RBC) [Mass/Vol] 32.3 g/dL 28.4 - 34.8 g/dL [employer] Phone: MCV (RBC) [Entitic vol] 86.1 fL 82.6 - 102.9 fL [employer] Phone: Monocytes (Bld) [#/Vol] 0.57 10*3/uL [employer] Phone: Monocytes/100 WBC (Bld) 7 % 3 - 12 % [facility] Phone: Platelet mean volume (Bld) [Entitic vol] 9.8 fL 8.1 - 13.5 fL [employer] Phone: Platelets (Bld) [#/Vol] NOT REPORTED [employer] Phone: Platelets (Bld) [#/Vol] 365 10*3/uL [employer] Phone: RBC (Bld) [#/Vol] 4.24 10*6/uL 3.95 - 5.1 1 m/uL [facility] Work Phone: RBC morphology finding Nom (Bld) NOT REPORTED [facility] Work Phone: Segmented neutrophils/100 WBC (Bld) 79 % High 36 - 65 % [facility] Work Phone: Segs Absolute 6.91 [facility] Work Phone: WBC (Bld) [#/Vol] 0.0 10*3/uL 0.0 per 100 WBC M [facility] Work Phone: WBC (Bld) [#/Vol] 8.7 10*3/uL [facility] Work Phone: WBC Morphology NOT REPORTED [employer] Work Phone: EKG 12 Leadon 06-11-2020 Atrial Rate 68 BPM [facility] Work Phone: P [place] 84 degrees [facility] Work Phone: P-R Interval 132 ms [facility] Work Phone: Q-T Interval 420 ms [facility] Work Phone: QRS Duration 88 ms [facility] Work Phone: QTc Calculation (Bazett) 446 ms [employer] [facility] Work Phone: R [place] -6 degrees [facility] Work Phone: T [place] -5 degrees [facility] Work Phone: Ventricular Rate 68 BPM [employer] Work Phone: Normal sinus rhythm Minimal voltage criteria for LVH, may be normal variant Inferior infarct , age undetermined Cannot rule out Anterior infarct , age undetermined Abnormal ECG When compared with ECG of 15-APR-2020 11:51, Inferior infarct is now Present Inverted T waves have replaced nonspecific T wave abnormality in Inferior leads Confirmed by SANIA HERRERA ([id number]) on 06/11/2020 5:02:41 PM [employer] Phone: Devin, [employer] Incoming E kg Results From [employer] - 06/11/2020 5:02 PM EDT Normal sinus rhythm Minimal voltage criteria for LVH, may be normal variant Inferior infarct , age undetermined Cannot rule out Anterior infarct , age undetermined Abnormal ECG When compared with ECG of 15-APR-2020 11:51, Inferior infarct is now Present Inverted T waves have replaced nonspecific T wave abnormality in Inferior leads Confirmed by SANIA HERRERA ([id number]) on 06/11/2020 5:02:41 PM [employer] Phone: Metabolic Panelon 06-11-2020 GFR/1.73 sq M predicted angel g non-blacks MDRD (S/P/Bld) [Vol rate/Area] [employer] Phone: Comment on above: Average GFR for 50-5 9 years old: 93 mL/min/1.73sq m Chronic Kidney Disease: <60 mL/min/1.73sq m Kidney failure: <15 mL/min/1.73sq m eGFR calculated using average adult body mass. Additional eGFR calculator available at: http://www.Gobook[employer]/multiple_crcl_2012.htm Stage 1: Some kidney damage normal GFR Stage 2: Mild kidney damage GFR 60-89 Stage 3: Moderate kidney damage GFR 30-59 Stage 4: Severe kidney damage GFR 15-29 Stage 5: Severe kidney damage GFR <15 ESRD - chronic treatment by dialysis or transplant Sedimentation Rateon 021 Interpretation and review of laboratory results Abnormal [employer] Phone: Sed Rate 95 mm High 0 - 20 mm [employer] Phone: COVID-19on 04-15-2020 SARS-CoV-2 Not Detected Not Detected [place], [place] Comment on above: The specimen is NEGATIVE for SARS-CoV-2, the novel coronavirus associated with COVID-19. A negative result does not rule out COVID-19. This test has been authorized by the FDA under an Emergency Use Authorization (EUA) for use by authorized laboratories. [employer] SARS-CoV-2 Reagents for [facility] are designed to detect the virus that causes COVID-19 in patients with signs and symptoms of infection who are suspected of COVID-19. An individual without symptoms of COVID-19 and who is not shedding SARS-CoV-2 virus would expect to have a negative (not detected) result in this assay. Fact sheet for Healthcare Providers: https://www.fda.gov/media/544032/download Fact sheet for Patients: https://www.fda.gov/media/965698/download METHODOLOGY: RT-PCR SARS-CoV-2 [place] SARS-CoV-2, Rapid [place], [place] Source .NASOPHARYNGEAL SWAB [place], [place] CBC Auto Differentialon 12- 0-2020 Basophils (Bld) [#/Vol] 10*3/uL [place] Basophils/100 WBC (Bld) 0 % 0 - 2 % [place] Differential Type NOT REPORTED [place] Eosinophils (Bld) [#/Vol] 0.11 10*3/uL [place] Eosinophils/100 WBC (Bld) 2 % 1 - 4 % [place] Erythrocyte distribution width (RBC) [Ratio] 13.9 % 11.8 - 14.4 % [place] Hematocrit (Bld) [Volume fraction] 41.9 % 36.3 - 47.1 % [place], [place] Hemoglobin (Bld) [Mass/Vol] 13.4 g/dL 11.9 - 1 5.1 g/dL [place] Immature granulocytes (Bld) [#/Vol] 0 % 0 [place] Immature granulocytes (Bld) [#/Vol] 10*3/uL [place] Interpretation and review of laboratory results Abnormal [place] Lymphocytes (Bld) [#/Vol] 1.04 10*3/uL Low [place] Lymphocytes/100 WBC (Bld) 17 % Low 24 - 43 % [place] MCH (RBC) [Entitic mass] 28.3 pg 25.2 - 33.5 pg [place] MCHC (RBC) [Mass/Vol] 32.0 g/dL 28.4 - 34.8 g/ dL [place] MCV (RBC) [Entitic vol] 88.6 fL 82.6 - 102.9 fL [place] Monocytes (Bld) [#/Vol] 0.33 10*3/uL [place] Monocytes/100 WBC (Bld) 6 % 3 - 12 % M [place] Platelet mean volume (Bld) [Entitic vol] 10.3 fL 8.1 - 13.5 fL [place] Platelets (Bld) [#/Vol] 219 10*3/uL [place] Platelets (Bld) [#/Vol] NOT REPORTED [place] RBC (Bld) [#/Vol] 4.73 10*6/uL 3.95 - 5.11 m/uL [place] RBC morphology finding Nom (Bld) NOT REPORTED [place] Segmented neutrophils/100 WB C (Bld) 75 % High 36 - 65 % [place] Segs Absolute 4.52 [place], [place] WBC (Bld) [#/Vol] 6.0 10*3/uL [place] WBC (Bld) [#/Vol] 0.0 10*3/uL 0.0 per 100 WBC [place] WBC Morphology NOT REPORTED [place], [place] Comprehensive Metabolic Pane fracisco 03-10-2020 Albumin [Mass/Vol] 4.3 g/dL 3.5 - 5.2 g/dL [place] Albumin/Globulin [Mass ratio] 1.4 {ratio} [place] ALP [Catalytic activity/Vol] 66 U/L 35 - 10 4 U/L [place] ALT [Catalytic activity/Vol] 25 U/L 5 - 33 U/L [place] Anion gap [Moles/Vol] 12 mmol/L 9 - 17 mmol/L [place] AST [Catalytic activity/Vol] 14 U/L <32 [place] Bilirubin Ql (U) 0.87 mg/dL 0.3 - 1.2 mg/dL [place] Bun/Cre Ratio 26 High [place], [place] Calcium [Mass/Vol] 9.4 mg/dL 8.6 - 10.4 mg/dL [place] Chloride [Moles/Vol] 97 mmol/L Low 98 - 107 mmol/L [place] CO2 [Moles/Vol] 27 mmol/L 20 - 31 mmol/L [place] Creatinine [Mass/Vol] 0.86 mg/dL 0.5 - 0.9 mg/d L [place] GFR >60 >60 mL/min [place] GFR Non- >60 >60 mL/min [place] Glucose [Mass/Vol] 100 mg/dL High 70 - 99 mg/dL [place] Interpretation and review of laboratory results Abnormal [place] Potassium [Moles/Vol] 3.6 mmol/L Low 3.7 - 5.3 mmol /L [place] Protein [Mass/Vol] 7.4 g/dL 6.4 - 8.3 g/dL [place] Sodium [Moles/Vol] 136 mmol/L 135 - 144 mmol/L [place] Urea nitrogen [Mass/Vol] 22 mg/dL High 6 - 20 mg/d L [place] Lipid Panelon 03-10-2020 Cholesterol [Mass/Vol] 132 mg/dL <200 [place] Comment on above: Cholesterol Guidelines: <200 Desirable 200-240 Borderline >240 Undesirable Cholesterol in HDL [Mass/Vol] 51 mg/dL >40 [place] Comment on above: HDL Guidelines: <40 Undesirable 40-59 Borderline >59 Desirable Cholesterol in LDL [Mass/Vol] 66 mg/dL 0 - 13 0 mg/dL [place] Comment on above: LDL Guidelines: <100 Desirable 100-129 Near to/above Desirable 130-159 Borderline >159 Undesirable Direct (measured) LDL and calculated LDL are not interchangeable tests. Cholesterol in VLDL [Mass/Vol] NOT REPORTED mg/dL [place] Cholesterol.total/Cholestero l in HDL [Mass ratio] 2.6 {ratio} <5 [place], [place] Triglyceride [Mass/Vol] 76 mg/dL <150 M [place], [place] Comment on above: Triglyceride Guidelines: <150 Desirable 150-199 Borderline 200-499 High >499 Very high Based on AHA Guidelines for fasting triglyceride, December 2011. Metabolic Panelon 03-10-2020 GFR/1.73 sq M predicted angel g non-blacks MDRD (S/P/Bld) [Vol rate/Area] [place], [place] Comment on above: Stage 1: Some kidney damage normal GFR Stage 2: Mild kidney damage GFR 60-89 Stage 3: Moderate kidney damage GFR 30-59 Stage 4: Severe kidney damage GFR 15-29 Stage 5: Severe kidney damage GFR <15 ESRD - chronic treatment by dialysis or transplant Average GFR for 50-5 9 years old: 93 mL/min/1.73sq m Chronic Kidney Disease: <60 mL/min/1.73sq m Kidney failure: <15 mL/min/1.73sq m eGFR calculated using average adult body mass. Additional eGFR calculator available at: http://www.Gobooks/multiple_crcl_2011.htm TSH without Reflexon 020 TSH Qn 2.77 m[IU]/L [place] EMILY DIGITAL SCREEN SELF REFE RRAL W OR WO CAD BILATERALOrdered By: Galindo Galvez on 02-28-2019 BIRADS - CATEGORY 2 Benign, no evidence of malignancy. Normal interval follow-up is recommended in 12 months. OVERALL ASSESSMENT - BENIGN A letter of notification will be sent to the patient regarding the results. The [employer] recommends annual mammograms for women 40 years and older. Emy Thompson Work Phone: EXAMINATION: JAYASHREE ANDERSON DIGITAL SCREENING MAMMOGRAM, 02/28/2019 TECHNIQUE: CC and MLO views of the left and right breasts were obtained. Computer aided detection was utilized in the interpretation of this exam. 3D tomosynthesis images were obtained. COMPARISON: 03 May 2016; 19 August 2014 HISTORY: Screening. The breasts are composed of scattered fibroglandular densities. Stable scattered benign appearing parenchymal calcifications are noted in both breasts. No skin thickening, nipple contour changes, malignant type microcalcifications, areas of architectural distortion, or significant interval changes are noted. FINDINGS: No evidence of malignancy. Advise annual screening mammography. BI-RADS 2 [employer] Phone: Devin, Mhpn Incoming R adiant Results From [facility] - 02/28/2019 5:03 PM EST EXAMINATION: BILATERAL DIGITAL SCREENING MAMMOGRAM, 02/28/2019 TECHNIQUE: CC and MLO views of the left and right breasts were obtained. Computer aided detection was utilized in the interpretation of this exam. 3D tomosynthesis images were obtained. COMPARISON: 03 May 2016; 19 August 2014 HISTORY: Screening. The breasts are composed of scattered fibroglandular densities. Stable scattered benign appearing parenchymal calcifications are noted in both breasts. No skin thickening, nipple contour changes, malignant type microcalcifications, areas of architectural distortion, or significant interval changes are noted. FINDINGS: No evidence of malignancy. Advise annual screening mammography. BI-RADS 2 IMPRESSION: BIRADS - CATEGORY 2 Benign, no evidence of malignancy. Normal interval follow-up is recommended in 12 months. OVERALL ASSESSMENT - BENIGN A letter of notification will be sent to the patient regarding the results. The [employer] recommends annual mammograms for women 40 years and older. [employer] Phone: C-Reactive Proteinon 019 CRP [Mass/Vol] 9.7 mg/L High 0 - 5 mg/L [place] Interpretation and review of laboratory results Abnormal [place], [place] CBC Auto Differentialon 11-10 Basophils (Bld) [#/Vol] 10*3/uL [place] Basophils/100 WBC (Bld) 0 % 0 - 2 % [place] Differential Type NOT REPORTED [place] Eosinophils (Bld) [#/Vol] 0.19 10*3/uL [place] Eosinophils/100 WBC (Bld) 3 % 1 - 4 % [place] Erythrocyte distribution width (RBC) [Ratio] 14.5 % High 11.8 - 14.4 % [place] Hematocrit (Bld) [Volume fraction] 39.7 % 36.3 - 47.1 % [place] Hemoglobin (Bld) [Mass/Vol] 12.5 g/dL 11.9 - 1 5.1 g/dL [place] Immature granulocytes (Bld) [#/Vol] 0.05 10*3/uL [place] Immature granulocytes (Bld) [#/Vol] 1 % High 0 [place] Interpretation and review of laboratory results Abnormal [place] Lymphocytes (Bld) [#/Vol] 1.00 10*3/uL [place] Lymphocytes/100 WBC (Bld) 14 % Low 24 - 43 % [place] MCH (RBC) [Entitic mass] 27.9 pg 25.2 - 33.5 pg [place] MCHC (RBC) [Mass/Vol] 31.5 g/dL 28.4 - 34.8 g/ dL [place] MCV (RBC) [Entitic vol] 88.6 fL 82.6 - 102.9 fL [place] Monocytes (Bld) [#/Vol] 0.41 10*3/uL [place] Monocytes/100 WBC (Bld) 6 % 3 - 12 % [place] Platelet mean volume (Bld) [Entitic vol] 10.5 fL 8.1 - 13.5 fL [place] Platelets (Bld) [#/Vol] NOT REPORTED [place] Platelets (Bld) [#/Vol] 238 10*3/uL [place] RBC (Bld) [#/Vol] 4.48 10*6/uL 3.95 - 5.11 m/uL [place] RBC morphology finding Nom (Bld) NOT REPORTED [place] Segmented neutrophils/100 WB C (Bld) 76 % High 36 - 65 % [place] Segs Absolute 5.59 [place] WBC (Bld) [#/Vol] 0.0 10*3/uL 0.0 per 100 WBC M [place] WBC (Bld) [#/Vol] 7.3 10*3/uL [place] WBC Morphology NOT REPORTED [place] Vital Signs Date Time Vital Sign Value Performing Clinician Jesseniai keegan 11-15-2022 21:34-0400 Body temperature 98.2 [degF] Sharri Camejo MD Work Phone: [facility] 11-15-2022 21:34-0400 Diastolic blood pressure 96 mm[Hg] Sharri Camejo MD Work Phone: [facility] 11-15-2022 21:34-0400 Heart rate 66 /min Sharri Camejo MD Work Phone: [facility] 11-15-2022 21:34-0400 Respiratory rate 18 /min Sharri Camejo MD Work Phone: [facility] 11-15-2022 21:34-0400 SaO2% (BldA) [Mass fraction] 98 % Sharri Camejo MD Work Phone: [facility] 11-15-2022 21:34-0400 Systolic blood pressure 173 mm[Hg] Sharri Camejo MD Work Phone: [facility] 04-21-2020 09:30-0500 BP Diastolic 59 mm[Hg] [place] 04-21-2020 09:30-0500 BP Systolic 133 mm[Hg] [place] 04-21-2020 09:30-0500 Pulse (Heart Rate) 58 /min [place] 04-21-2020 09:30-0500 Pulse Oximetry 98 % [place] 04-21-2020 09:30-0500 Respiratory Rate 16 /min [place] 04-21-2020 09:20-0500 Body Temperature 97.3 [degF] Galindo [facility] H, [place] 04-21-2020 06:45-0500 BMI (Body Mass Index) 60.13 kg/m2 [facility], [place] 04-21-2020 06:45-0500 Body weight 161.39 kg Galindo [facility] , [place] 04-21-2020 06:45-0500 Height 163.8 cm [facility] [place] Encounters Encounter Date Encounter Type Care Provider Facility Start: 11-16-2022 End: 11-16-2022 Emergency department patient visit SHARRIRISHI CAMEJO [facility] Start: 11-15-2022 End: 11-16-2022 Emergency department patient visit Sharri Camejo MD Work Phone: [facility] ED Comment on above: Contusion of right g reat toe without damage to nail, initial encounter (Primary Dx) Start: 02-09-2022 End: 02-10-[address] HITESH PEREZ Facility: Start: 08-26-2020 End: 08-26-2020 Subsequent hospital visit by physician Marcelo Sleep 1 [facility] Sleep Center Comment on above: Arrived Start: 06-16-2020 End: 06-16-2020 Patient encounter procedure [facility] Facility:[facility] Start: 06-15-2020 End: 06-17-2020 Subsequent hospital visit by physician Patsy Cat Scan Room [facility] CT Scan Comment on above: Other mechanical com plication of internal orthopedic device, unspecified orthopedic device type, initial encounter (HCC) Start: 06-14-2020 End: 06-15-2020 Patient encounter procedure [facility] Facility:[facility] Start: 06-14-2020 End: 06-15-2020 Patient encounter procedure [facility] Facility:[facility] Start: 06-11-2020 End: 06-11-2020 Subsequent hospital visit by physician Gris JESSICA Laboratory Start: 04-21-2020 End: 04-21-2020 Subsequent hospital visit by physician Galindo Galvez Work Phone: [facility] OR Comment on above: Abnormal uterine ble eding due to endometrial polyp (Primary Dx) Start: 04-15-2020 End: 04-19-2020 Subsequent hospital visit by physician Patsy Covid19 Pat Screening Schedule [facility] PRE ADMIT Comment on above: Preoperative testing Start: 03-10-2020 End: 03-10-2020 Subsequent hospital visit by physician Gris Graham [facility] Laboratory Comment on above: Essential hypertensi on Start: 02-13-2020 End: 02-13-2020 Subsequent hospital visit by physician Gris Graham [facility] Laboratory Comment on above: PMB (postmenopausal bleeding); Women's annual routine gynecological examination Start: 08-08-2019 End: 08-08-2019 Subsequent hospital visit by physician Patsy Lab Drawing Room [facility] Laboratory Comment on above: Dysuria Start: 02-28-2019 End: 03-02-2019 Subsequent hospital visit by physician Patsy [facility] Mammography Comment on above: Breast cancer screen ing by mammogram Start: 11-22-2018 End: 11-22-2018 Subsequent hospital visit by physician Gris Graham [facility] Laboratory Comment on above: Bilateral cellulitis of lower leg Procedures Date Procedure Procedure Detail Performing Clinician Start: 11-15-2022 Radex toe minimum 2 views Sharri Camejo MD Work Phone: Start: 06-15-2020 Ct lower extremity w/contrast material Darci Carter Work Phone: Start: 06-11-2020 Ecg routine ecg w/le ast 12 lds w/i&r Darci Carter Work Phone: Start: 06-11-2020 EKG REPORT Hpf Scanni ng Start: 06-11-2020 Cul prsmptv pthgnc o rganism scrn w/colony estimj Darci Carter Work Phone: Start: 06-11-2020 Basic metabolic pane l calcium total Darci Carter Work Phone: Start: 06-11-2020 Blood count complete auto&auto difrntl wbc Darci Carter Work Phone: Start: 06-11-2020 C-reactive protein Scot mari Carter Work Phone: Start: 06-11-2020 Sedimentation rate r bc automated Draci Carter Work Phone: Start: 04-15-2020 COVID-19 Eric dow Work Phone: Start: 03-10-2020 Assay of thyroid stimulating hormone tsh Dipdevendrakania P Graham Work Phone: Start: 03-10-2020 Lipid panel Dipakkumar P Graham Work Phone: Start: 03-10-2020 Blood count complete auto&auto difrntl wbc Dipakkumar P Graham Work Phone: Start: 03-10-2020 Comprehensive metabo lic panel Dipakkumar P Graham Work Phone: Start: 02-13-2020 Microscopic observat ion [Identifier] in Cervix by Cyto stain Sharri Camejo MD Work Phone: Start: 02-28-2019 Screening digital br east tomosynthesis bi Galindo Galvez MD Work Phone: Start: 11-22-2018 Blood count complete auto&auto difrntl wbc Dipakkumar P Graham Work Phone: Start: 11-22-2018 C-reactive protein Ayaka kkumar P Graham Work Phone: Start: 03-31-2013 Colonoscopy Sharri King MD Work Phone: Plan of Treatment Date Care Activity Detail Author Start: 08-08-2026 DTaP/Tdap/Td vaccine (2 - Td or Tdap) DTaP/Tdap/Td vaccine (2 - Td or Tdap) [facility] Start: 08-08-2026 DTaP/Tdap/Td vaccine (2 - Td) DTaP/Tdap/Td vaccine (2 - Td) [place] Start: 04-17-2026 Hepatitis C screen Hepatitis C nica presley [place], [place] Comment on above: Postponed from 09/14 (Unavailable) Start: 04-17-2026 Hepatitis C screening Hepatitis C billie bernard [facility] Comment on above: Postponed from 09/14 (Unavailable) Postponed from 09/14 (Unavailable) Start: 04-17-2026 HIV screen HIV screen [place] Comment on above: Postponed from 09/14 (Unavailable) Start: 04-17-2026 HIV screening HIV screen [facility] Comment on above: Postponed from 09/14 (Unavailable) Start: 03-31-2023 Colon cancer screen colonoscopy Colon cancer screen colonoscopy [place] Start: 03-31-2023 Screening for malign ant neoplasm of colon [facility] Start: 02-12-2023 Screening for malign ant neoplasm of cervix [facility] Start: 10-10-2022 Influenza vaccination Flu vaccine (# 1) [facility] Start: 09-27-2022 Lipid screen Lipid screen [place] Start: 01-18-2022 Depression Monitoring Depression Mon itoring [facility] Start: 06-27-2021 Cervical cancer screen Cervical canc er [place] Start: 06-27-2021 Screening for malign ant neoplasm of cervix Cervical cancer [place] Start: 06-11-2021 Creatinine measurement Creatinine mo [facility] [employer] Phone: Start: 06-11-2021 Potassium monitoring Potassium monit [facility] [employer] Phone: Start: 04-05-2021 COVID-19 Vaccine (4 - Booster for Pfizer series) COVID-19 Vaccine (4 - Booster for Pfizer series) [facility] Start: 03-10-2021 Creatinine measurement Creatinine mo [place], [place] Start: 03-10-2021 Lipid panel [facility] Start: 03-10-2021 Potassium monitoring Potassium monit [place] Start: 02-28-2021 Breast cancer screen Breast cancer [facility] [employer] Phone: Start: 02-28-2021 Screening for malign ant neoplasm of breast Breast cancer screen [facility] Start: 09-30-2020 End: 09-30-2020 Patient encounter procedure 09/30/2020 Office Visit Primary Care Gris Graham MD [address] [place] [address] [phone] [facility] Start: 06-29-2020 End: 06-29-2020 Office Visit 06/29/2020 Office Visit Primary Care Gris Graham MD [address] [place] [address] [phone] [facility] Start: 06-22-2020 COVID-19 Vaccine (2 - Pfizer 2-dose series) COVID-19 Vaccine (2 - Pfizer 2-dose series) [facility] Work Phone: Start: 06-18-2020 End: 06-18-2020 Office Visit 06/18/2020 Office Visit Gris Graham MD [address] [place] [phone] [facility] Start: 06-03-2020 End: 06-03-2020 Office Visit 06/03/2020 Office Visit Family Medicine Gris Graham MD [address] [place] [address] [phone] Gris Graham MD Start: 05-05-2020 End: 05-05-2020 Office Visit 05/05/2020 Office Visit Obstetrics and Gynecology Galindo Galvez MD [address] [place] [address] [phone] [facility] Start: 04-21-2020 End: 04-21-2020 Hospital Encounter [facility] [place] Comment on above: DILATATION AND CURET TAGE HYSTEROSCOPY, POLYPECTOMY Start: 03-17-2020 End: 03-17-2020 Office Visit 03/17/2020 Office Visit Obstetrics and Gynecology Galindo Galvez MD [address] [place] [address] [facility] Start: 03-02-2020 End: 03-02-2020 Office Visit 03/02/2020 Office Visit Gris Medina MD [address] [place] [phone] Gris Graham MD Start: 11-11-2019 Influenza vaccination Flu vaccine (# 1) [place] Start: 11-04-2019 End: 11-04-2019 Office Visit 11/04/2019 Office Visit Gris Medina MD [address] [place] [phone] Gris Graham MD Start: 07-23-2019 Creatinine measurement Creatinine mo [place]itoring [place] Start: 07-23-2019 Creatinine monitoring Creatinine mon [place]oring [place] Start: 07-23-2019 Potassium monitoring Potassium monit [place]ing [place] Start: 05-01-2019 End: 05-01-2019 Patient encounter procedure 05/01/2019 Office Visit Gris Medina MD [address] [place] [phone] Gris Graham MD Start: 12-24-2018 End: 12-24-2018 Office Visit 12/24/2018 Office Visit Gris Medina MD [address] [place] [phone] Gris Graham MD Start: 11-29-2018 End: 11-29-2018 Office Visit 11/29/2018 Office Visit Gris Medina MD [address] [place] [phone] Gris Graham MD Start: 11-10-2018 Influenza vaccination Flu vaccine (# 1) [place] Start: 09-27-2018 Lipid panel Lipid screen [place] Start: 09-27-2018 Lipid screen Lipid screen [facility] Work Phone: Start: 05-04-2018 Breast cancer screen Breast cancer s marv [facility] [employer] [place], [place] Start: 2012 Shingles Vaccine (1 of 2) Shingles Vaccine (1 of 2) [facility] [employer] Start: 09-15-2007 Screening for malign ant neoplasm of colon [facility] [employer] Start: 2002 Diabetes screen Diabetes screen [facility] [employer] Phone: Start: 1992 Screening for malign ant neoplasm of cervix HPV (without or with Pap) [email or web address] Start: 1978 COVID-19 Vaccine (1) COVID-19 Vaccin e (1) [employer] Phone: Continuous pulse oximetry Pulse oximetry, continuous Respiratory Care Routine Every 4hr until discontinued starting 04/21/2020 [place] Comment on above: Every 4hr until disc ontinued starting 04/21/2020 End: 11-22-2018 Culture Blood #1 Culture Blood #1 Microbiolog y Routine Bilateral cellulitis of lower leg 1 Occurrences starting 11/22/2018 until 11/22/2018 [place] Comment on above: 1 Occurrences starti ng 11/22/2018 until 11/22/2018 Culture Blood #1 Culture Blood # 1 Microbiology Routine Bilateral cellulitis of lower leg 11/22/2018 11:40 AM T [place] Culture, Anaerobic a nd Aerobic Culture, Anaerobic and Aerobic Microbiology Routine 06/11/2020 11:04 AM [employer] [facility] Phone: End: 08-08-2019 Culture, Urine Culture, Urine Microbiology Routine Dysuria 1 Occurrences starting 08/08/2019 until 08/08/2019 [place] Comment on above: 1 Occurrences starti ng 08/08/2019 until 08/08/2019 Culture, Urine Culture, Urine Microbiology Routine Dysuria 08/08/2019 8:28 AM [place] End: 02-13-2020 Cytopathology procedure, preparation of smear, genital source PAP SMEAR Lab STAT Women's annual routine gynecological examination 1 Occurrences starting 02/13/2020 until 02/13/2020 [place] Comment on above: 1 Occurrences starti ng 02/13/2020 until 02/13/2020 Oxygen therapy [[facility] Data Set] Initiate Oxygen Therapy Protocol Respiratory Care Routine Daily until discontinued [facility]/21[facility]2020 [facility]: Daily until disconti nued starting 04/21/2020 Phase I & II - meter ed glucose Phase I & II - metered glucose Point of Care Testing Routine As Needed until discontinued starting 04/21/2020 [facility] Comment on above: As Needed until disc ontinued starting 04/21/2020 End: 08-26-2020 Sleep Study with PAP Titration Sleep Study with PAP Titration Sleep Center Routine One Time for 1 Occurrences starting 08/26/2020 until 08/26/2020 [facility] [employer] Phone: Comment on above: One Time for 1 Occur rences starting 08/26/2020 until 08/26/2020 Spirometry panel Incentive brian metry Respiratory Care Routine Every 2hr while awake until discontinued starting 04/21/2020 [facility] [place] Comment on above: Every 2hr while awak e until discontinued starting 04/21/2020 End: 02-13-2020 Surgical Pathology Surgical Pathology Lab Routine PMB (postmenopausal bleeding) 1 Occurrences starting 02/13/2020 until 02/13/2020 [facility] [place] Comment on above: 1 Occurrences starti ng 02/13/2020 until 02/13/2020 End: 02-13-2020 Surgical Pathology Surgical Pathology Lab Routine Once for 1 Occurrences starting 02/13/2020 until 02/13/2020 [facility] [place] Comment on above: Once for 1 Occurrenc es starting 02/13/2020 until 02/13/2020 Surgical Pathology Surgical Path ology Lab Routine Release Upon Ordering for 1 Occurrences starting 04/21/2020 [facility] [place] Comment on above: Release Upon Orderin g for 1 Occurrences starting 04/21/2020 Immunizations Immunization Date Immunization Notes Care Provider Cony wallace 02-26-2020 influenza virus vacc ine, unspecified formulation Gris [facility] [email or web address] 11-29-2018 influenza, injectabl e, quadrivalent, contains preservative Mth Ct [employer] Phone: 12-03-2017 influenza, injectabl e, quadrivalent, preservative free [facility], [place] 12-01-2016 influenza, seasonal, injectable, preservative free [facility], [place] 08-08-2016 tetanus toxoid, redu desean diphtheria toxoid, and acellular pertussis vaccine, adsorbed Dipakkristal [facility] 12-06-2015 Influenza Vaccine, unspecified formulation Gris [facility] 12-15-2014 influenza virus vacc ine, unspecified formulation Dipakkristal [facility] 11-28-2013 influenza virus vacc ine, unspecified formulation [facility] , [place] Payers Date Payer Category Payer Unknown 2015 Unknown xxxxxxxxxxxx [id number] 2015 Unknown [employer]ESS [id number] 2015-Present [phone] [address] [place] [address] [id number] 1962 Unknown [id number] 1962 Unknown [id number] 1962 Unknown [id number] 1962 Unknown [id number] 1962 Unknown [id number] 1962 Unknown [id number] 1959 Unknown [id number] Social History Date Type Detail Facility Start: 03-26-2013 End: 11-08-2018 Tobacco smoking status NHIS Never smoker [employer] Start: 11-08-2018 Alcohol intake No [facility] Start: 03-26-2013 Alcohol Comment no alcohol for 19 years [place], [place] Sex Assigned At Not on file [facility] [place] Start: 08-07-2019 End: 11-15-2022 Alcohol intake Current non-drinker of alcohol (finding) [employer] Phone: Start: 1960 Sex [facility]igned At [facility]: Exposure to SARS-CoV -2 (event) Unable to assess [facility] [place] Start: 03-26-2013 End: 02-13-2020 Tobacco use and exposure Never used [employer] [place] Exposure to SARS-CoV -2 (event) Not sure [facility] [place] Start: 09-27-2020 History SDOH Financial 5 [facility] [employer] Start: 09-27-2020 History SDOH Food Worry 1 [facility] [employer] Start: 09-27-2020 History SDOH Transpo rt Non-Med 2 [facility] Hospital Discharge instructions 11-16-2022 Discharge InstructionsAttachments Note Date & Type Note Facility 11-16-2022 Hospital Discharg e instructions Sharri Camejo MD - 11/16/2022 12:13 AM EDT Thank you for trusting us with your care today. You may use tylenol or ibuprofen as needed for pain. Schedule follow-up with primary care in 1-4 days., The workup completed in the ER today (including imaging) found that your symptoms are unlikely caused by an unstable condition - although this may be the case, symptoms may change, worsen, or not improve - sometimes the cause of symptoms may take time to manifest itself and require repeat testing - if symptoms do change, worsen, or do not improve return to the ED for re-evaluation - Additionally, further testing may be needed through a follow up appointment - it is very important to follow up with a doctor for re-evaluation and possible further testing outside of the ER Follow up with Dr Carter in 24-48 hours Return to the ER immediately with the development of any new, persistent, or worsening symptoms. Read discharge paperwork The following attachments cannot be sent through Care Everywhere.Contusion (British)RICE: General Info (British)documented in this encounter [facility] [employer] Evaluation note Note Date & Type Note Facility Evaluation note Diagnosis Breast cancer screening by mammogram documented in this encounter [employer] Phone: Evaluation note Note Date & Type Note Facility Evaluation note Diagnosis Contusion of right great toe without damage to nail, initial encounter- Primary documented in this encounter [facility] [employer] Assessments Diagnosis Bilateral cellulitis of lower leg Cellulitis and abscess of leg, except foot Diagnosis Dysuria Diagnosis PMB (postmenopausal bleeding) Postmenopausal bleeding Women's annual routine gynecological examination Diagnosis Essential hypertension Unspecified essential hypertension Diagnosis Preoperative testing Preoperative examination, unspecified Diagnosis Abnormal uterine bleeding due to endometrial polyp- Primary Diagnosis Other mechanical complication of internal orthopedic device, unspecified orthopedic device type, initial encounter ([facility]) Advance Directives No Advanced Directives Records FoundDocuments on File Type Date 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 Advance Directives and Living Will Power of Dry Mixer Latest Code Status on File Code Status Date Activated Date Inactivated Comments Full Code 01/13/2015 10:27 AM 01/19/2015 12:38 PM Full Code 01/11/2015 1:16 PM 01/13/2015 10:27 AM Full Code 04/09/2013 8:21 AM 04/09/2013 12:03 PM Documents on File Type Date Recorded 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 ACP-Advance Directive ACP-Power of Dry Mixer Documents on File Type Date Recorded 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 ACP-Advance Directive ACP-Power of Dry Mixer Latest Code Status on File Code Status Date Activated Date Inactivated Comments Full Code 04/21/2020 9:31 AM Full Code 04/21/2020 6:19 AM 04/21/2020 9:31 AM Full Code 01/13/2015 10:27 AM 01/19/2015 12:38 PM Full Code 01/11/2015 1:16 PM 01/13/2015 10:27 AM Full Code 04/09/2013 8:21 AM 04/09/2013 12:03 PM Latest Code Status on File Code Status Date Activated Date Inactivated Comments Full Code 04/21/2020 9:31 AM 04/21/2020 12:24 PM Full Code 04/21/2020 6:19 AM 04/21/2020 9:31 AM Full Code 01/13/2015 10:27 AM 01/19/2015 12:38 PM Latest Code Status on File Code Status Date Activated Date Inactivated Comments Full Code 04/21/2020 9:31 AM 04/21/2020 12:24 PM Documents on File Type Date Recorded 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 Advance Directives and Living Will Power of Dry Mixer Latest Code Status on File Code Status Date Activated Date Inactivated Comments Full Code 01/13/2015 10:27 AM 01/19/2015 12:38 PM Latest Code Status on File Code Status Date Activated Date Inactivated Comments Full Code 04/21/2020 9:31 AM 04/21/2020 12:24 PM Code Status History Code Status Date Activated Date Inactivated Comments Full Code 04/21/2020 6:19 AM 04/21/2020 9:31 AM Full Code 01/13/2015 10:27 AM 01/19/2015 12:38 PM Full Code 01/11/2015 1:16 PM 01/13/2015 10:27 AM Full Code 04/09/2013 8:21 AM 04/09/2013 12:03 PM Discharge Instructions * Instructions* Lucy Chacko RN - 04/21/2020 SAME DAY SURGERY DISCHARGE INSTRUCTIONS 1. Do not drive or operate hazardous machinery for 24 hours. 2. Do not make important personal or business decisions for 24 hours. 3. Do not drink alcoholic beverages for 24 hours. 4. Do not smoke tobacco products for 24 hours. You have just undergone a minor operative procedure and these instructions should help you through the postoperative phase of the operation. Most patients feel sleepy for several hours after going home and this anesthetic effect may not wear off until the next morning. You should not use any alcoholic beverages or drive until the following day. It is advisable to take it easy for one or two days following your procedure by avoiding any lifting, pushing, moving or carrying any heavy objects; thereafter, you should be able to resume most of your normal activities and return to work. If a D&C was done either alone or in addition to another procedure, you may have some vaginal bleeding for several days, but probably not for more than a week. You should avoid baths (you may shower), tampons, douches or sexual relations until your postop visit or until the vaginal staining hascompletely subsided. Your menstrual period will occur approximately 3-4 weeks after the procedure, o ccasionally earlier. It also may be heavier than normal. You may experience some cramping or some mild to moderate lower abdominal discomfort, but this should be gone by the next day. In the meantime, you may take an afza-glp-lwhigtd analgesic (Tylenol, Anacin, etc.) and use a heating pad applied to the lower abdomen. Please keep previously scheduled follow up appointment. If you experience any unusual amount of bleeding or side effects that you cannot readily explain, please do not hesitate to call the office. documented in this encounter History of Present Illness * Lucy Chacko RN - 04/21/2020 10:10 AM EST Patient verbalizes readiness for discharge. Discharge instructions given to patient and responsibleadult, answered all questions, and verbalized understanding of discharge instructions. Discharge Criteria Inpatients must meet Criteria 1 through 7. All other patients are either YES or N/A. If a NO is chosen then Anesthesia or Surgeon must be notified. 1. Minimum 30 minutes after last dose of sedative medication, minimum 120 minutes after last dose of reversal agent. Yes 2. Systolic BP stable within 20 mmHg for 30 minutes & systolic BP between 90 & 180 or within 10 mmHg of baseline. Yes 3. Pulse between 60 and 100 or within 10 bpm of baseline. Yes 4. Spontaneous respiratory rate >/= 10 per minute. Yes 5. SaO2 >/= 95 or >/= baseline. Yes 6. Able to cough and swallow or return to baseline function. Yes 7. Alert and oriented or return to baseline mental status. Yes 8. Demonstrates controlled, coordinated movements, ambulates with steady gait, or return to baseline activity function. Yes 9. Minimal or no pain or nausea, or at a level tolerable and acceptable to patient. Yes 10. Takes and retains oral fluids as allowed. Yes 11. Procedural / perioperative site stable. Minimal or no bleeding. Yes 12. If GI endoscopy procedure, minimal or no abdominal distention or passing flatus. N/A 13. Written discharge instructions and emergency telephone number provided. Yes 14. Accompanied by a responsible adult. Yes * Lucy Chacko RN - 04/21/2020 9:50 AM EST Pt requested to use restroom prior to changing, ambulated well with standby assist, voided without difficulty, but states she did have some burning, pt states there was very little vaginal bleeding. Ambulated back to recliner to go over discharge instructions. * Lucy Chacko RN - 04/21/2020 9:50 AM EST Pt's order sheet from Dr. Galvez on chart states to hold eliquis 4 days preop and 4 days post op. Pt states she was told she could resume eliquis tomorrow. This RN called into OR to verify with Dr. Galvez when he wants Eliquis resumed and he stated she can resume it anytime. * Mariela Swanson RN - 04/16/2020 9:46 AM EST Positive urine culture result called to Dr. Galvez. documented in this encounter Summary Purpose Family History No Family History Records FoundNo Family History Records FoundNo Family History Records Found Reason for Referral Status Reason Specialty Diagnoses / Procedures Referre d By Contact Referred To Contact Closed Radiology Diagnoses Breast cancer screening by mammogram Procedures EMILY DIGITAL SCREEN SELF REFERRAL W OR WO CAD BILATERAL Galindo Galvez MD [address] [place] [address] Additional Source Comments Reason for Visit (unrecogniz ed section and content) Status Reason Specialty Diagnoses / Procedures Referre d By Contact Referred To Contact Diagnoses PMB (postmenopausal bleeding) PMB, SUSPECTED POLYP Procedures RI HYSTEROSCOPY,W/ENDO BX DILATATION AND CURETTAGE HYSTEROSCOPY, POLYPECTOMY Galindo Galvez MD [address] [place] [address] [facility] Status Reason Specialty Diagnoses / Procedures Referre d By Contact Referred To Contact Closed Radiology Diagnoses Other mechanical complication of internal orthopedic device, unspecified orthopedic device type, initial encounter ([facility]) Procedures CT FOOT RIGHT W CONTRAST CT FOOT RIGHT W WO CONTRAST Darci Carter, DPM [address] [place] [address] [place] [address] Status Reason Specialty Diagnoses / Procedures Referred By Contact Referred To Contact Closed [facility] Diagnoses BHAVIN on CPAP Procedures Sleep Study with PAP Titration Gris Graham MD [address] [facility] [address] [place] [address] Status Reason Specialty Diagnoses / Procedures Referre d By Contact Referred To Contact Closed Radiology Diagnoses Breast cancer screening by mammogram Procedures EMILY DIGITAL SCREEN SELF REFERRAL W OR WO CAD BILATERAL Galindo Galvez MD [address] [place] [address] Reason Comments Toe Pain Pain at right big to e after fall at work today. States, tripped over boxes, fell into the boxes and felt pain in toe Ordered Prescriptions (unrec ognized section and content) Prescription Sig Dispensed Refills Start Date End Da te HYDROcodone-acetaminophe n (NORCO) 5-325 MG per tabletIndications:Abnorm al uterine bleeding due to endometrial polyp Take 1 tablet by mouth every 6 hours as needed for Pain for up to 3 days. Intended supply: 3 days. Take lowest dose possible to manage pain 10 tablet 0 04/21/2020 04/24/2020 apixaban (ELIQUIS) 5 MG TABS tablet TAKE 1 TABLET BY MOUTH TWICE A DAY 90 tablet 0 04/21/2020 INFORMATION SOURCE (unrecogn ized section and content) DATE CREATED AUTHOR 06/24/2020 [facility] DATE CREATED AUTHOR AUTHOR'S ORGANIZ ATION 03/03/2022 [facility] DATE CREATED AUTHOR AUTHOR'S ORGANIZ ATION 11/16/2022 [facility] Care Teams (unrecognized sec tion and content) Artist Scientific Relationship Specialty Start Date End Date Shaikh Tovar MD [address] [place] [address] PCP - General 01/23/22 FOR RECORDS PERTAINING TO PATIENTS WHO ARE OR HAVE BEEN ENROLLED IN A CHEMICAL DEPENDENCY/SUBSTANCEABUSE PROGRAM, SOME INFORMATION MAY BE OMITTED. This clinical summary was aggregated from multiple sources. Caution should be exercised in using it in the provision of clinical care. This summary normalizes information from multiple sources, and as a consequence, information in this document may materially change the coding, format and clinical context of patient data. In addition, data may be omitted in some cases. CLINICAL DECISIONS SHOULD BE BASED ON THE PRIMARY CLINICAL RECORDS. [facility] provides no warranty or guarantee of the accuracy or completeness of information in this document.
== END 2023-01-30 08:47 | disposition home or self-care (01) ==
LOC: LAB 08:46
PROVIDERS: PCP Internal Medicine; Visit Provider Internal Medicine
DX: E78.5 Hyperlipidemia, unspecified (principal); I10 Essential (primary) hypertension; F41.8 Other specified anxiety disorders
CPT/HCPCS: 36415; 80053; 80061; 84443

== ENCOUNTER 2023-08-25 09:28 | Outpatient (OUT) | payer BC, SELFPAY ==
--- OUTSIDE RECORDS SUMMARY | 2023-08-25 09:33 | XMS_ITS | CCD ---
Author Organization [facility] Care Team Providers Care Scalehouse Attendant Name Role Phone Gris Graham Primary Care Provider DARCI CARTER Attending Unavailable DARCI CARTER Attending Unavailable DARCI CARTER Attending Unavailable Gris Graham MD Primary Care Provider Gris Graham MD Primary Care Provider [phone] DR HITESH PEREZ V Consulting Unavailable SHAIKH Kimberly TOVAR Admitting Unavailable SHAIKH Kimberly TOVAR Attending Unavailable SHAIKH Kimberly TOVAR Consulting Unavailable SHAIKH Kimberly TOVAR Attending Unavailable DR HITESH PEREZ V Consulting Unavailable SHAIKH Kimberly TOVAR Admitting Unavailable SHAIKH Kimberly TOVAR Consulting Unavailable Shaikh Tovar MD Primary Care Provider SHARRI CAMEJO Attending Unavailabl SHAIKH Schrader Primary Care Unavailable Shaikh Tovar MD Primary Care Provider SHAIKH TOVAR Attending Unavailable SHAIKH TOVAR Attending Unavailable Allergies Allergy Classification Reported Allergen(s) Allergy Type Date of Onset Reaction(s) Facility Adhesive Tape (1 source) Adhesive Tape Substance Allergy 4 [employer] Work Phone: Angiotensin Converting Enzyme (SOPHIE) Inhibitors (1 source) Lisinopril Drug Allergy 7 [employer] Work Phone: Penicillins (antibiotic) (1 source) Penicillins Drug Allergy 4 [facility] pineapple allergenic extract (1 source) pineapple allergenic extract Drug Allergy 5 Anaphylaxis, Shortness Of Breath (12 sources) Adhesive Tape Propensity to adverse reactions to drug 4 Rash [place], [place] (12 sources) Lisinopril Drug Allergy 7 [place], [place] (11 sources) Penicillins Propensity to adverse reactions to drug 4 [place] (12 sources) pineapple allergenic extract Drug Allergy 5 Anaphylaxis, Shortness Of Breath [place], [place] (1 source) Adhesive Tape; Translations: [Tape] Propensity to adverse reactions (disorder) [facility] (1 source) Penicillin; Translations: [penicillin] Drug Allergy [facility] (1 source) pinapple; Translations: [pinapple] Propensity to adverse reactions to food (disorder) [facility] (1 source) lisinipril; Translations: [lisinipril] Propensity to adverse reactions to drug (disorder) [facility] (1 source) Penicillins Propensity to adverse reactions to drug 4 [facility] (1 source) Lisinopril Propensity to adverse reactions 4 [facility] (1 source) Penicillins Propensity to adverse reactions 4 [facility] (1 source) Wound Dressing Adhesive Propensity to adverse reactions 4 Swelling, Rash [facility] Medications Current Medications Medication Drug Class(es) Dates [...] ORCO) 5-325 MG per tablet 1 tablet [id number] actuat albuterol 0.09 mg/actuat metered dose inhaler (5 sources) beta2-Adrenergic Agonist Start: 03-28-2023 End: 06-26-2023 take 2 puff(s) by inhalation every four hours for wheezing albuterol HFA 90 mcg/act inhaler Indications: Acute upper respiratory infection, unspecified , Acute upper respiratory infection Inhale 2 puffs every 4 (four) hours if needed for wheezing or shortness of breath 18 g 2 03/28/2023 06/26/2023 Active Start: 04-12-2018 take 2 puff(s) by [...] 09/20/2018 Active atorvastatin 20 mg oral tablet (15 sources) HMG-CoA Reductase Inhibitor Start: 04-26-2023 End: 07-25-2023 take 1 tablet by mouth in the morning atorvastatin (Lipitor) 20 MG tablet Indications: Hyperlipidemia, unspecified hyperlipidemia type (CMS/HCC) Take 1 tablet (20 mg) by mouth in the morning. 90 tablet 0 04/26/2023 07/25/2023 Active Start: 12-06-2021 take 1 tablet by keith th once [...] DAY 90 tablet 0 04/20/2020 Active Start: 06-21-2018 End: 04-26-2023 take 1 tablet by mouth once daily atorvastatin (LIPITOR) 20 MG tablet TAKE 1 TABLET BY MOUTH EVERY DAY 90 tablet 0 07/25/2019 Active benzonatate 100 mg oral capsule (1 source) Non-narcotic Antitussive take 1 capsule by mouth three times daily as needed for cough benzonatate (Tessalon) 100 MG capsule Take 100 mg by mouth 3 (three) times a day as needed for cough Do not crush or chew. 0 Active 24 hr buPROPion hydrochloride 300 mg extended release oral tablet (13 sources) Aminoketone Start: 03-25-19 take 1 tablet by mouth once daily [...] tablet 0 12/23/2018 Active Start: 11-21-2018 buPROPion (CROW LBUTRIN XL) 300 MG extended release tablet TAKE 1 TABLET EVERY MORNING 90 tablet 0 11/21/2018 Active calcium chloride 0.0014 meq/ml / potassium chloride 0.004 meq/ml / sodium chloride 0.103 meq/ml / sodium lactate 0.028 meq/ml injectable solution (2 sources) Start: 04-21-2020 lactated ringe rs infusion carvedilol 6.25 mg oral tablet (15 sources) alpha-Adrenergi c Irish, beta-Adrenergic Irish Start: 04-26-2023 End: 07-25-2023 take 1 tablet by mouth in the morning carvedilol (Coreg) 6.25 MG tablet Indications: Essential hypertension (CMS/HCC) Take 1 tablet (6.25 mg) by mouth in the morning and 1 tablet (6.25 mg) in the evening. Take with meals. 180 tablet 0 04/26/2023 07/25/2023 Active Start: 12-06-2021 take 1 tablet by keith twice daily [...] Start: 01-19-2020 take 1 tablet by keith twice daily at mealtime carvedilol (COREG) 6.25 MG tablet TAKE 1 TABLET BY MOUTH TWICE A DAY WITH MEALS 180 tablet 0 04/20/2020 Active Start: 07-25-2019 carvedilol (CO REG) 6.25 MG tablet TAKE 1 TABLET TWICE DAILY WITH MEALS 180 tablet 0 07/25/2019 Active Start: 11-21-2018 End: 04-26-2023 carvedilol (COREG) 6.25 MG t ablet TAKE 1 TABLET TWICE DAILY WITH MEALS 180 tablet 0 12/23/2018 Active doxycycline hyclate 100 mg oral capsule [...] injection 25 mcg FLUoxetine 20 mg oral tablet (15 sources) Serotonin Reuptake Inhibitor Start: 04-26-2023 End: 07-25-2023 take 1 tablet by mouth in the morning FLUoxetine (PROzac) 20 MG tablet Indications: Moderate single current episode of major depressive disorder (HCC) (CMS/HCC) Take 1 tablet (20 mg) by mouth in the morning. 90 tablet 0 04/26/2023 07/25/2023 Active Start: 06-30-2021 take 1 capsule by mo uth once [...] capsule 0 07/25/2019 Active Start: 12-23-2018 FLUoxetine (MI OZAC) 20 MG capsule TAKE 1 CAPSULE DAILY 90 capsule 0 12/23/2018 Active Start: 11-21-2018 FLUoxetine (MI OZAC) 20 MG capsule TAKE 1 CAPSULE DAILY 90 capsule 0 11/21/2018 Active hydroCHLOROthiazide 25 mg / spironolactone 25 mg oral tablet (15 sources) Thiazide Diuretic, Aldosterone Antagonist Start: 04-26-2023 End: 07-25-2023 take 1 tablet by mouth in the morning spironolactone-hydroCHLOROthiazide (Aldactazide) 25-25 MG tablet Indications: Essential hypertension (CMS/HCC) Take 1 tablet (25 mg) by mouth in the morning. 90 tablet 0 04/26/2023 07/25/2023 Active Start: 03-25-2021 take 2 tablets by mouth [...] TABLETS DAILY 180 tablet 0 11/21/2018 Active End: 04-26-2023 spironolactone-hydroCHLOROth iazide (Aldactazide) 25-25 MG tablet Take by mouth 1 (one) time 0 04/26/2023 Discontinued (Reorder) metFORMIN hydrochloride 500 mg oral tablet (13 [...] Start: 06-21-2018 take 1 tablet by keith twice daily at mealtime metFORMIN (GLUCOPHAGE) 500 MG tablet Take 1 tablet by mouth 2 times daily (with meals) 180 tablet 3 06/21/2018 Active 2 ml metoclopramide 5 mg/ml prefilled syringe (1 source) Dopamine-2 Receptor Antagonist Start: 04-21-2020 End: 04-21-2020 metoclopramide (REGLAN) injection 10 mg nystatin 100 unt/mg topical powder (10 sources) Polyene Antifungal Start: 02-13-2020 nystatin (MYCOSTATIN) 369503 UNIT/GM powder Indications: Intertrigo Apply 3 times daily as needed for skin rash 1 Bottle 5 02/13/2020 Active 24 hr oxybutynin chloride 5 mg extended release oral tablet (15 sources) Cholinergic Muscarinic Antagonist Start: 04-26-2023 End: 07-25-2023 take 1 tablet by mouth every twenty-four hours in the morning oxybutynin XL (Ditropan-XL) 5 MG 24 hr tablet Indications: Urge incontinence Take 1 tablet (5 mg) by mouth in the morning. Do not crush, chew, or split.. 90 tablet 0 04/26/2023 07/25/2023 Active Start: 11-07-2021 take 1 tablet by keith once daily oxybutynin (DITROPAN-XL) 5 MG extended release tablet Indications: Irritable bladder TAKE 1 TABLET BY MOUTH EVERY DAY 30 tablet 3 11/07/2021 Active Start: 07-06-2020 take 1 tablet by keith once daily oxybutynin (DITROPAN-XL) 5 MG extended release tablet Indications: Irritable bladder TAKE 1 TABLET BY MOUTH EVERY DAY 90 tablet 3 07/06/2020 Active Start: 07-16-2019 oxybutynin (DI TROPAN-XL) 5 MG extended release tablet Indications: Irritable bladder TAKE 1 TABLET DAILY 90 tablet 3 07/16/2019 Active Start: 06-27-2018 take 1 tablet by keith once daily oxybutynin (DITROPAN-XL) 5 MG extended release tablet Indications: Irritable bladder TAKE ONE TABLET BY MOUTH DAILY 90 tablet 4 06/27/2018 Active predniSONE 20 mg oral tablet (2 sources) Start: 03-25-2021 take 1 tablet by mouth twice daily predniSONE (DELTASONE) 20 MG tablet TAKE 1 TABLET BY MOUTH TWICE A DAY FOR 5 DAYS 10 tablet 0 03/25/2021 Active take 2 tablets by mouth in the m orning predniSONE (Deltasone) 20 MG tablet Take 40 mg by mouth in the morning. 0 Active Promethazine (2 sources) Phenothiazine Start: 04-21-2020 promethazine ( PHENERGAN) tablet 12.5 mg Start: 04-21-2020 End: 04-21-2020 [...] unspecified orthopedic device type, initial encounter ([facility])] Episodic Disorders of lipid metabolism (16 sources) Hyperlipidemia; Translations: [Hyperlipidemia, unspecified] Onset: 08-31-2014 08-31-2014 Chronic Essential hypertension (20 sources) Essential hypertension; Translations: [Essential (primary) hypertension] Onset: 05-21-2014 12-10-2014 Chronic Genitourinary symptoms and ill-defined conditions (1 source) Urge incontinence of urine; Translations: [Urge incontinence] 04-26-2023 Chronic Genitourinary symptoms and ill-defined conditions (1 source) Dysuria; Translations: [Dysuria] Episodic Menopausal disorders (1 source) Postmenopausal bleeding; Translations: [PMB (postmenopausal bleeding)] Chronic Mood disorders (20 sources) Moderate major depression, single episode; Translations: [Recurrent major depression in remission] Onset: 12-15-2014 Resolved: 01-25-2017 07-13-2017 Chronic Other female genital disorders (9 sources) Abnormal uterine and vaginal bleeding, unspecified; Translations: [Abnormal uterine bleeding due to endometrial polyp] Onset: 04-26-2023 04-21-2020 Chronic Other nutritional; endocrine; and metabolic disorders (14 sources) Morbid obesity; Translations: [Morbid (severe) obesity due to excess calories] Onset: 05-21-2014 09-19-2017 Chronic Phlebitis; thrombophlebitis and thromboembolism (4 sources) Chronic deep venous thrombosis of right lower extremity; Translations: [Chronic embolism and thrombosis of unspecified deep veins of right lower extremity] Onset: 12-13-2015 12-13-2015 Chronic Phlebitis; thrombophlebitis and thromboembolism (20 sources) Acute deep venous thrombosis of right lower extremity; Translations: [Chronic deep venous thrombosis of right lower extremity] Onset: 11-19-2015 Resolved: 05-25-2017 05-25-2017 Residual codes; unclassified (14 sources) Obstructive sleep apnea syndrome; Translations: [Obstructive [...] Onset: 03-15-2018 03-15-2018 Episodic Residual codes; unclassified (12 sources) Localized edema; Translations: [Bilateral lower limb edema] Onset: 03-15-2018 03-15-2018 Episodic Unclassified (14 sources) Patient encounter status; Translations: [Screening for colorectal cancer] Onset: 03-26-2013 Resolved: 01-07-2018 01-07-2018 Results Test Name Value Interpretation Reference Range Facility XR TOE RIGHT (MIN 2 VIEWS)on 11-16-2022 [...] Tiarra Tello MD 11/15/[address] [facility] XR TOE RIGHT (MIN 2 VIEWS)on 11-15-2022 1. Mild degenerative changes of the right great toe without evidence of acute osseous abnormality. 2. Postsurgical changes of the midfoot. A screw fragment is seen within the medial aspect of the midfoot with adjacent screw tract identified. 3. Mild soft tissue swelling is seen along the medial aspect of the foot. [facility] EXAMINATION: FIVE XRAY VIEWS OF THE RIGHT [...] along the medial aspect of the foot. [facility] Tiarra Tello MD - 11/15/2022 EXAMINATION: FIVE [...] along the medial aspect of the foot. [facility] Radiology Study observation (narrative) [facility] XR TOE RIGHT (MIN 2 VIEWS)Or dered By: Tiarra Tello on 11-15-2022 [facility] [employer] Work Phone: CBC AUTO DIFFon 02-09-2022 BASO # 0.0 103/ul Normal 0.0-0.1 [facility] Comment on above: Performed By: #### C BC #### [facility] [address] [address] [address] Judy Silverio Basophils/100 WBC (Bld) 0.3 % Normal 0.2-2.0 [facility] Comment on above: Performed By: #### C BC #### [facility] [address] [address] [address] Judy Silverio EO # 0.1 103/ul Normal 0.0-0.7 [facility] Comment on above: Performed By: #### C BC #### [facility] [address] [place] [address] Dr. Judy Silverio Eosinophils/100 WBC (Bld) 1.9 % Normal 0.9-7.0 [facility] Comment on above: Performed By: #### C BC #### [facility] [address] [place] [address] Dr. Judy Silverio Erythrocyte distribution width (RBC) [Ratio] 14.8 % Normal 11.0-15.0 [facility] Comment on above: Performed By: #### C BC #### [facility] [address] [place] [address] Dr. Judy Silverio Hematocrit (Bld) [Volume fraction] 39.7 % Normal 36.0-48.0 [facility] Comment on above: Performed By: #### C BC #### [facility] [address] [place] [address] Dr. Judy Silverio Hemoglobin (Bld) [Mass/Vol] 13.0 g/dL Normal 12.0-16.0 [facility] Comment on above: Performed By: #### C BC #### [facility] [address] [place] [address] Dr. Judy Silverio IG # 0.03 10e3/ul Normal 0.00-0.03 [facility] Comment on above: Performed By: #### C BC #### [facility] [address] [place] [address] Dr. Judy Silverio IG % 0.4 % Normal 0.0-0.5 [facility] Comment on above: Performed By: #### C BC #### [facility] [address] [place] [address] Dr. Judy Silverio LYMPH # 1.2 103/ul Normal 1.2-3.8 [facility] Comment on above: Performed By: #### C BC #### [facility] [address] [place] [address] Dr. Judy Silverio Lymphocytes/100 WBC (Bld) 17.3 % Critically low 20.5-60.0 [facility] Comment on above: Performed By: #### C BC #### [facility] [address] [place] [address] Dr. Judy Silverio MANUAL DIFF REQ NO Normal [facility] Comment on above: Performed By: #### C BC #### [facility] [address] [place] [address] Dr. Judy Silverio MCH (RBC) [Entitic mass] 28.2 pg Normal 26.7-34.0 [facility] Comment on above: Performed By: #### C BC #### [facility] [address] [place] [address] Dr. Judy Silverio MCHC (RBC) [Mass/Vol] 32.7 g/dL Normal 29.9-35.2 [facility] Comment on above: Performed By: #### C BC #### [facility] [address] [place] [address] Dr. Judy Silverio MCV (RBC) [Entitic vol] 86.1 fL Normal 81.0-99.0 [facility] Comment on above: Performed By: #### C BC #### [facility] [address] [place] [address] Dr. Judy Silverio MONO # 0.4 103/ul Normal 0.3-0.8 [facility] Comment on above: Performed By: #### C BC #### [facility] [address] [place] [address] Dr. Judy Silverio Monocytes/100 WBC (Bld) 6.3 % Normal 1.7-12.0 [facility] Comment on above: Performed By: #### C BC #### [facility] [address] [place] [address] Dr. Judy Silverio NEUT # 5.0 103/ul Normal 1.4-6.5 [facility] Comment on above: Performed By: #### C BC #### [facility] [address] [place] [address] Dr. Judy Silverio Neutrophils/100 WBC (Bld) 73.8 % Normal 43.0-75.0 [facility] Comment on above: Performed By: #### C BC #### [facility] [address] [place] [address] Dr. Judy Silverio Platelet mean volume (Bld) [Entitic vol] 9.8 fL Normal 9.5-13.5 [facility] Comment on above: Performed By: #### C BC #### [facility] [address] [place] [address] Dr. Judy Silverio PLT 234 103/ul Normal 150-450 [facility] Comment on above: Performed By: #### C BC #### [facility] [address] [place] [address] Dr. Judy Silverio RBC 4.61 106/ul Normal 4.20-5.40 [facility] Comment on above: Performed By: #### C BC #### [facility] [address] [place] [address] Dr. Judy Silverio WBC 6.7 103/ul Normal 4.0-11.0 [facility] Comment on above: Performed By: #### C BC #### [facility] [address] [place] [address] Dr. Judy Silverio GLYCOHEMOGLOBIN A1Con 2021 ADA RECOMMENDATION SEE BELOW Normal [facility] Comment on above: Result Comment: ADA RECOMMENDED LIMIT 4.0 - 6.0 ADA THERAPEUTIC TARGET < 7.0 ACTION SUGGESTED > 7.0 Performed By: #### A 1C #### [facility] [address] [address] [address] Judy Silverio Glucose [Mass/Vol] 123 mg/dL Normal [facility] Comment on above: Performed By: #### A 1C #### [facility] [address] [address] [address] Judy Silverio HbA1c (Bld) [Mass fraction] 5.9 % Normal 4.5-6.2 [facility] Comment on above: Performed By: #### A 1C #### [facility] [address] [place] [address] Dr. Judy Silverio LIPID PROFILEon 02-09-2022 CHOL-HDL RATIO NORM SEE BELOW Normal [facility] Comment on above: Result Comment: 3.3 - 4.4 LOW RISK 4.4 - 7.1 AVERAGE RISK 7.1 - 11.0 MODERATE RISK >11.0 HIGH RISK Performed By: #### C MP, LIPID #### [facility] [address] [place] [address] Dr. Judy Silverio Cholesterol [Mass/Vol] 148 mg/dL Normal <=200 [facility] Comment on above: Performed By: #### C MP, LIPID #### [facility] [address] [place] [address] Dr. Judy Silverio Cholesterol in HDL [Mass/Vol] 49 mg/dL Normal 40-60 [facility] Comment on above: Performed By: #### C MP, LIPID #### [facility] [address] [address] [address] Judy Silverio Cholesterol in LDL [Mass/Vol] 73.8 mg/dL Normal [facility] Comment on above: Performed By: #### C MP, LIPID #### [facility] [address] [address] [address] Judy Silverio Cholesterol.total/Ch olesterol in HDL [Mass ratio] 3.0 {ratio} Normal [facility] Comment on above: Performed By: #### C MP, LIPID #### [facility] [address] [address] [address] Judy Silverio HDL NORMAL > or = 60 mg/dl - LOW CARDIOVASCULAR RISK <40 mg/dl - HIGH CARDIOVASCULAR RISK Normal [facility] Comment on above: Performed By: #### C MP, LIPID #### [facility] [address] [place], [place] [address] Dr. Judy Silverio LDL CALC NORMAL SEE BELOW Normal [facility] Comment on above: Result Comment: <100 mg/dl OPTIMAL 100 - 129 mg/dl NEAR OR ABOVE OPTIMAL 130 - 159 mg/dl BORDERLINE HIGH 160 - 189 mg/dl HIGH >190 mg/dl VERY HIGH Performed By: #### C MP, LIPID #### [facility] [address] [place], [place] [address] Dr. Judy Silverio Triglyceride [Mass/Vol] 126 mg/dL Normal <=150 [facility] Comment on above: Performed By: #### C MP, LIPID #### [facility] [address] [address] [address] Judy Silverio VLDL CALC 25.2 mg/dL Normal [facility] Comment on above: Performed By: #### C MP, LIPID #### [facility] [address] [address] [address] Judy Silverio MG MAMM SCREEN 3D KANDICE CADon 02-09-2022 MG MAMM SCREEN 3D KANDICE CAD Patient: JENIFER VERGARA Exam Date: 02/09/2022 : 1960 Gender:F Ordering : SHAIKH Tanmay TOVAR . Admission #: [id number] Family : Order #: [id number] CLICK HERE TO VIEW EXAM RADIOLOGY REPORT PROCEDURE: MAMMOGRAM SCREENING 3D BILATERAL CAD COMPARISON: MAMMO KANDICE SCREEN, 02/28/2019. INDICATIONS: Screening mammography Calculator Name NCI Breast Cancer Risk Assessment Tool 5 Year Breast Cancer Risk Not Reported. Lifetime Breast Cancer Risk Not Reported. Personal Breast Cancer No Personal Ovarian Cancer No Treatments None Family Cancers None LOCATION: [facility] BREAST COMPOSITION: Scattered areas fibroglandular density. FINDINGS: [...] Perez MD on 02/09/2022 at 14:34 Normal [facility] PROF 14(COMP METB)on 022 Albumin [Mass/Vol] 3.8 g/dL Normal 3.4-5.0 [facility] Comment on above: Performed By: #### C MP, LIPID #### [facility] [address] [place] [address] Dr. Judy Silverio Albumin/Globulin [Mass ratio] 1.0 {ratio} Normal [facility] Comment on above: Performed By: #### C MP, LIPID #### [facility] [address] [place] [address] Dr. Judy Silverio ALP [Catalytic activity/Vol] 74 U/L Normal 46-116 [facility] Comment on above: Performed By: #### C MP, LIPID #### [facility] [address] [place] [address] Dr. Judy Silverio ALT [Catalytic activity/Vol] 26 U/L Normal 14-59 [facility] Comment on above: Performed By: #### C MP, LIPID #### [facility] [address] [place] [address] Dr. Judy Silverio Anion gap [Moles/Vol] 11.0 mmol/L Normal [facility] Comment on above: Performed By: #### C MP, LIPID #### [facility] [address] [place] [address] Dr. Judy Silverio AST [Catalytic activity/Vol] 10 U/L Critically low 15-37 [facility] Comment on above: Performed By: #### C MP, LIPID #### [facility] [address] [place] [address] Dr. Judy Silverio Bilirubin [Mass/Vol] 1.1 mg/dL Critically high 0.2-1.0 [facility] Comment on above: Performed By: #### C MP, LIPID #### [facility] [address] [place] [address] Dr. Judy Silverio Calcium [Mass/Vol] 9.1 mg/dL Normal 8.5-10.1 [facility] Comment on above: Performed By: #### C MP, LIPID #### [facility] [address] [address] [address] Judy Silverio Chloride [Moles/Vol] 101 mmol/L Normal 98-107 [facility] Comment on above: Performed By: #### C MP, LIPID #### [facility] [address] [address] [address] Judy Silverio CO2 [Moles/Vol] 29.1 mmol/L Normal 21.0-32.0 [facility] Comment on above: Performed By: #### C MP, LIPID #### [facility] [address] [place] [address] Dr. Judy Silverio Creatinine [Mass/Vol] 0.91 mg/dL Normal 0.55-1.02 [facility] Comment on above: Performed By: #### C MP, LIPID #### [facility] [address] [place] [address] Dr. Judy Silverio EGFR-AF GIBRALTARIAN >60 Normal >=60 [facility] Comment on above: Performed By: #### C MP, LIPID #### [facility] [address] [place] [address] Dr. Judy Silverio EGFR-NON AF GIBRALTARIAN >60 Normal >=60 [facility] Comment on above: Performed By: #### C MP, LIPID #### [facility] [address] [place] [address] Dr. Judy Silverio Globulin (S) [Mass/Vol] 3.7 g/dL Normal [facility] Comment on above: Performed By: #### C MP, LIPID #### [facility] [address] [place] [address] Dr. Judy Silverio Glucose [Mass/Vol] 79 mg/dL Normal 74-106 [facility] Comment on above: Performed By: #### C MP, LIPID #### [facility] [address] [place] [address] Dr. Judy Silverio Potassium [Moles/Vol] 4.1 mmol/L Normal 3.5-5.1 [facility] Comment on above: Performed By: #### C MP, LIPID #### [facility] [address] [place] [address] Dr. Judy Silverio Protein [Mass/Vol] 7.5 g/dL Normal 6.4-8.2 [facility] Comment on above: Performed By: #### C MP, LIPID #### [facility] [address] [place] [address] Dr. Judy Silverio Sodium [Moles/Vol] 137 mmol/L Normal 136-145 [facility] Comment on above: Performed By: #### C MP, LIPID #### [facility] [address] [place] [address] Dr. Judy Silverio Urea nitrogen [Mass/Vol] 19.0 mg/dL Critically high 7.0-18.0 [facility] Comment on above: Performed By: #### C MP, LIPID #### [facility] [address] [place] [address] Dr. Judy Silverio Urea nitrogen/Creatinine [Mass ratio] 20.9 mg/mg Normal [facility] Comment on above: Performed By: #### C MP, LIPID #### [facility] [address] [place] [address] Dr. Judy Silverio VC COMP CONSULTATIONon 02-09 VC COMP CONSULTATION Patient: JENIFER VERGARA Exam Date: 02/09/2022 : 1960 Gender:F Ordering : SHAIKH Tanmay TOVAR . Admission #: [id number] Family : Order #: [id number] CLICK HERE TO VIEW EXAM RADIOLOGY REPORT [...] accessory saphenous vein venous insufficiency. Bilateral incompetent wet process head miller veins. Bilateral incompetent varicose veins. PHYSICAL EXAM: The right leg demonstrates scattered reticular and spider veins. Severe pitting edema below the knee. Skin thickening , erythema and scaling mid to lower leg circumferential, lipodermatosclerosi s. The left leg demonstrates scattered reticular and [...] Perez MD on 02/09/2022 at 14:52 Normal [facility] VC VENOUS REFLUX KANDICE LMTon 1 04-12-2021 VC VENOUS REFLUX KANDICE LMT Patient: JENIFER VERGARA Exam Date: 02/09/2022 : 1960 Gender:F Ordering : SHAIKH Tanmay TOVAR . Admission #: [id number] Family : DR HITESH PEREZ M.D. Order #: [id number] CLICK HERE TO VIEW EXAM RADIOLOGY REPORT [...] chronic thrombus visualized Compressibility: Normal Flow: Normal Phlebotomy Specialist: Mid/med calf 4.5mm with 0s reflux. Tech [...] chronic thrombus visualized Compressibility: Normal Flow: Normal Phlebotomy Specialist: Dist/med calf 3.2mm with 0s reflux. Tech Note: Incompetent SFJ, GSV, and AASV. Patent varicose vein mid/med calf 3.6mm with 1.4s reflux. Patent varicose vein dist/med thigh 3.4mm with 0.7s reflux. CONCLUSION: 1. Moderate bilateral great saphenous vein venous insufficiency with associated dilatation 2. Moderate to severe bilateral anterior accessory saphenous vein venous insufficiency with associated dilatation 3. Bilateral incompetent wet process head miller veins 4. Bilateral incompetent varicose veins Dictated by: Hitesh Perez MD on 02/09/2022 at 13:37 Approved by: Hitesh Perez MD on 02/09/2022 at 13:39 Normal [facility] XR Foot 2 Views Righton 04-0 XR Foot 2 Views Right CLINICAL HISTORY: [...] Electronically Signed in Other Vendor System) Normal [facility] .BF Cell Cnt RBC Aon 021 Fluid RBC Count 5796 /mcL Normal [facility] Comment on above: Performed By: #### . Body Fluid Cell Count RBC Auto #### [place] [address] .BF Cell Cnt WBC Aon 021 Fluid WBC Count 32520 /mcL High 0-150 [facility] Comment on above: Performed By: #### . Body Fluid Cell Count WBC Auto #### [place] [address] .BF Diffon 06-16-2020 Fluid Mononuclear Cells 5 % Normal 0-78 [facility] Comment on above: Performed By: #### . Body Fluid Differential #### [place] [address] Fluid Other Cells 0 % Normal 0-10 [facility] Comment on above: Performed By: #### . Body Fluid Differential #### [place] [address] Fluid Polynuclear Cells 95 % High 0-25 [facility] Comment on above: Performed By: #### . Body Fluid Differential #### [place] [address] BF Cell Counton 06-16-2020 Body Fluid Cell Cnt Type Synovial Normal [facility] Comment on above: Performed By: #### F LCC #### [place] [address] C Sterile BFon 06-16-2020 C Sterile BF Final No growth at 48 hours. Gram Stain Many White Blood Cells No organisms seen. Normal [facility] Comment on above: Performed By: #### C SBF #### [address] [address] Crystalson 06-16-2020 Crystals LM Nom (Urine sed) NoCrystals Seen Normal NoCrystals Seen [facility] Comment on above: Performed By: #### F LCA #### [address] [address] Non-Multicraft Operator Cytology Reporton Non-Multicraft Operator Cytology Report Clinical Information Procedure: right foot [...] (Electronically signed by) 06/21/20 08:55 EDT Normal [facility] Comment on above: Performed By: #### N GCR #### [facility] (DEFAULT) [address] [place] [id number] Operative Reporton Operative Report Indication for Surgery [...] AND SCREWSright ankle arthrotomy, Right, Foot Surgeon(s) Darci Carter DPM (Surgeon - Primary) Block Stacker Angelina Anand PA-C (Propeller Layout Worker) Anesthesia General Randall Lambert MD (Employee Benefits Manager) Vesta Rea (Provider) Estimated Blood Loss 10 [...] Ringer's and gentamicin solution utilizing a pulse radio station audio engineer. Attention was then directed to procedure #2. [...] follow-up instructions. Tourniquet Time Tourniquet Cuff 18x4 [id number], Leg lower (Right), Total Time 54 Sponge/Needle Count Correct at the end of the procedure Fluid Count Please see the anesthesia record Electronically signed by Darci Sandoval DPM 06/16/20 14:41 EDT Normal [facility] CT FOOT RIGHT W CONTRASTon 0 06-15-2020 1. Thick-walled synovial enhancement of the anterior [...] subcutaneous fat about the foot and ankle. [employer] Phone: EXAMINATION: CT OF THE RIGHT FOOT WITH [...] unspecified orthopedic device type, initial encounter ([facility]) TECHNOLOGIST PROVIDED HISTORY: EVAL FOR ABCESS 59-year-old [...] the TMT joints. Severe plantar calcaneal spur. Jpmy-cj-veexjqpt degenerative changes of the remainder of the [...] tendons are seen in their expected locations. Zqpu-nb-jombxbdl atrophy and fatty degeneration of the visualized musculature. Joint: Mild degenerative changes of the tibiotalar joint. Os trigonum variant/Stieda process at the posterior talus. Moderate to large tibiotalar joint effusion with synovial enhancement anteriorly. Fluid in the posterior subtalar joint recess. No intertarsal joint effusion. The ankle mortise appears intact. [employer] Work Phone: Devin, [facility] Incoming Radiant Results From [employer] - 06/15/2020 12:14 PM EDT EXAMINATION: CT [...] unspecified orthopedic device type, initial encounter ([facility]) TECHNOLOGIST PROVIDED HISTORY: EVAL FOR ABCESS 59-year-old [...] the TMT joints. Severe plantar calcaneal spur. Mkmh-vc-ynlitbqg degenerative changes of the remainder of the [...] tendons are seen in their expected locations. Ajlq-kv-evlykyzj atrophy and fatty degeneration of the visualized [...] subcutaneous fat about the foot and ankle. [facility] Work Phone: [address] 06-14-2020 Employed in healthcare? Unknown [facility] Comment on above: Performed By: #### C [id number] #### [place] [address] Group care resident? Unknown [facility] Comment on above: Performed By: #### C [id number] #### [place] [address] Hospitalized due to COVID-19? No [facility] Comment on above: Performed By: #### C [id number] #### [place] [address] In ICU? No [facility] Comment on above: Performed By: #### C [id number] #### [place] [address] Is this the first test for COVID? Unknown [facility] Comment on above: Performed By: #### C [id number] #### [place] [address] status? Not [facility] Comment on above: Performed By: #### C [id number] #### [address] [place] [address] SARS-Cov-2 Ag Normal Negative [facility] Comment on above: Result Comment: * Ne [...] Negative ADDITIONAL INFORMATION: Testing performed on the [employer] 3600 using the SARS-CoV-2 Antigen test. Results are for the identification of SARS-CoV-2 nucleocapsid antigen. The [employer] SARS-CoV-2 Antigen test can detect both viable and non-viable SARS-CoV-2 material. The [employer] SARS-CoV-2 Antigen test performance depends on antigen [...] test results. In the [place], the [employer] SARS-CoV-2 Antigen test is only for use under the Food and Drug Administration?s Emergency Use Authorization. HCP Fact Sheet: https://www.fda.gov/media/813596/download Patient Fact Sheet: https://www.fda.gov/media/648010/download Performed By: #### C [id number] #### [address] [address] Symptomatic as defined by CDC? No Normal [facility] Comment on above: Performed By: #### C [id number] #### [address] [place] [address] Basic Metabolic Panelon 04-0 Anion gap [Moles/Vol] 14 mmol/L 9 - 17 mmol/L [employer] Phone: Bun/Cre Ratio 28 High [employer] [facility] [employer] Work Phone: Calcium [Mass/Vol] 10.0 mg/dL 8.6 - 10. 4 mg/dL [facility] Phone: Chloride [Moles/Vol] 95 mmol/L Low 98 - 10 7 mmol/L [facility] Phone: CO2 [Moles/Vol] 27 mmol/L 20 - 31 mmol/L [employer] Phone: Creatinine [Mass/Vol] 0.69 mg/dL 0.50 - 0.90 mg/dL [facility] Phone: GFR >60 >60 mL/min [employer] Phone: GFR Non- >60 >60 mL/min [facility] Phone: Glucose [Mass/Vol] 104 mg/dL High 70 - 99 mg/dL [facility] [employer] Phone: Interpretation and review of laboratory results Abnormal [employer] Phone: Potassium [Moles/Vol] 3.8 mmol/L 3.7 - 5.3 mmol/L [facility] Phone: Sodium [Moles/Vol] 136 mmol/L 135 - 144 mmol/L [facility] Phone: Urea nitrogen [Mass/Vol] 19 mg/dL 6 - 20 mg/dL [employer] Phone: C-Reactive Proteinon 06-11- 021 CRP [Mass/Vol] 182.8 mg/L High 0.0 - 5.0 mg/L [facility] Phone: Interpretation and review of laboratory results Abnormal [employer] Phone: CBC Auto Differentialon -0 Basophils (Bld) [#/Vol] 10*3/uL [employer] Phone: Basophils/100 WBC (Bld) 0 % 0 - 2 % [employer] Phone: Differential Type NOT REPORTED [employer] Phone: Eosinophils (Bld) [#/Vol] 0.09 10*3/uL [employer] Phone: Eosinophils/100 WBC (Bld) 1 % 1 - 4 % [employer] Phone: Erythrocyte distribution width (RBC) [Ratio] 14.6 % High 11.8 - 14.4 % [employer] Phone: Hematocrit (Bld) [Volume fraction] 36.5 % 36.3 - 47.1 % [employer] Phone: Hemoglobin (Bld) [Mass/Vol] 11.8 g/dL Low 11.9 - 15.1 g/dL [employer] Phone: Immature granulocytes (Bld) [#/Vol] 0.04 10*3/uL [employer] Phone: Immature granulocytes (Bld) [#/Vol] 1 % High 0 [employer] Phone: Interpretation and review of laboratory results Abnormal [employer] Phone: Lymphocytes (Bld) [#/Vol] 1.04 10*3/uL Low [employer] Phone: Lymphocytes/100 WBC (Bld) 12 % Low 24 - 43 % [employer] Phone: MCH (RBC) [Entitic mass] 27.8 pg 25.2 - 33.5 pg [employer] Phone: MCHC (RBC) [Mass/Vol] 32.3 g/dL 28.4 - 34.8 g/dL [employer] Phone: MCV (RBC) [Entitic vol] 86.1 fL 82.6 - 102.9 fL [employer] Work Phone: Monocytes (Bld) [#/Vol] 0.57 10*3/uL [employer] Work Phone: Monocytes/100 WBC (Bld) 7 % 3 - 12 % [employer] Work Phone: Platelet mean volume (Bld) [Entitic vol] 9.8 fL 8.1 - 13.5 fL [employer] Work Phone: Platelets (Bld) [#/Vol] NOT REPORTED [employer] Work Phone: Platelets (Bld) [#/Vol] 365 10*3/uL [employer] Phone: RBC (Bld) [#/Vol] 4.24 10*6/uL 3.95 - 5.1 1 m/uL [employer] Phone: RBC morphology finding Nom (Bld) NOT REPORTED [employer] Phone: Segmented neutrophils/100 WBC (Bld) 79 % High 36 - 65 % [employer] Work Phone: Segs Absolute 6.91 [employer] [facility] Work Phone: WBC (Bld) [#/Vol] 0.0 10*3/uL 0.0 per 10 0 WBC [employer] Phone: WBC (Bld) [#/Vol] 8.7 10*3/uL [employer] Work Phone: WBC Morphology NOT REPORTED [employer] [facility] Work Phone: EKG 12 Leadon 06-11-2020 Atrial Rate 68 BPM [employer] Phone: P [place] 84 degrees [employer] Phone: P-R Interval 132 ms [employer] Work Phone: Q-T Interval 420 ms [employer] Phone: QRS Duration 88 ms [employer] Phone: QTc Calculation (Bazett) 446 ms [employer] Phone: R [place] -6 degrees [employer] Phone: T [place] -5 degrees [employer] Phone: Ventricular Rate 68 BPM [employer] Phone: Normal sinus rhythm Minimal voltage criteria for LVH, may be normal variant Inferior infarct , age undetermined Cannot rule out Anterior infarct , age undetermined Abnormal ECG When compared with ECG of 15-APR-2020 11:51, Inferior infarct is now Present Inverted T waves have replaced nonspecific T wave abnormality in Inferior leads Confirmed by SANIA HERRERA ([id number]) on 06/11/2020 5:02:41 PM [employer] Phone: Devin, M[facility] Incoming Ekg Results From [facility] [facility] - 06/11/2020 5:02 PM EDT Normal sinus [...] SANIA HERRERA ([id number]) on 06/11/2020 5:02:41 PM [employer] Phone: Metabolic Panelon 06-11-2020 GFR/1.73 sq M predicted among non-blacks MDRD (S/P/Bld) [Vol rate/Area] [employer] Phone: Comment on above: Average GFR for 50-5 9 years old: 93 mL/min/1.73sq m Chronic Kidney Disease: <60 mL/min/1.73sq m Kidney failure: <15 mL/min/1.73sq m eGFR calculated using average adult body mass. Additional eGFR calculator available at: http://www.Scytl/multiple_crcl_2012.htm Stage 1: Some kidney damage normal GFR Stage 2: Mild kidney damage GFR 60-89 Stage 3: Moderate kidney damage GFR 30-59 Stage 4: Severe kidney damage GFR 15-29 Stage 5: Severe kidney damage GFR <15 ESRD - chronic treatment by dialysis or transplant Sedimentation Rateon 021 Interpretation and review of laboratory results Abnormal Work Phone: Sed Rate 95 mm High 0 - 20 mm Work Phone: COVID-19on 04-15-2020 SARS-CoV-2 Not Detected Not Detected [place], [place] Comment on above: The specimen is NEGATIVE for SARS-CoV-2, the novel coronavirus associated with COVID-19. A negative result does not rule out COVID-19. This test has been authorized by the FDA under an Emergency Use Authorization (EUA) for use by authorized laboratories. [employer] SARS-CoV-2 Reagents for [employer] are designed to detect the virus that causes COVID-19 in patients with signs and symptoms of infection who are suspected of COVID-19. An individual without symptoms of COVID-19 and who is not shedding SARS-CoV-2 virus would expect to have a negative (not detected) result in this assay. Fact sheet for Healthcare Providers: https://www.fda.gov/media/865712/download Fact sheet for Patients: https://www.fda.gov/media/767765/download METHODOLOGY: RT-PCR SARS-CoV-2 [place] SARS-CoV-2, Rapid [place], [place] Source .NASOPHARYNGEAL SWAB [place] CBC Auto Differentialon - Basophils (Bld) [#/Vol] 10*3/uL [place] Basophils/100 WBC (Bld) 0 % 0 - 2 % [place] Differential Type NOT REPORTED [place] Eosinophils (Bld) [#/Vol] 0.11 10*3/uL [place] Eosinophils/100 WBC (Bld) 2 % 1 - 4 % [place] Erythrocyte distribution width (RBC) [Ratio] 13.9 % 11.8 - 14.4 % [place] Hematocrit (Bld) [Volume fraction] 41.9 % 36.3 - 47.1 % [place] Hemoglobin (Bld) [Mass/Vol] 13.4 g/dL 11.9 - 15.1 g/dL [place] Immature granulocytes (Bld) [#/Vol] 0 % 0 [place] Immature granulocytes (Bld) [#/Vol] 10*3/uL [place] Interpretation and review of laboratory results Abnormal [place] Lymphocytes (Bld) [#/Vol] 1.04 10*3/uL Low [place] Lymphocytes/100 WBC (Bld) 17 % Low 24 - 43 % [place] MCH (RBC) [Entitic mass] 28.3 pg 25.2 - 33.5 pg [place] MCHC (RBC) [Mass/Vol] 32.0 g/dL 28.4 - 34.8 g/dL [place] MCV (RBC) [Entitic vol] 88.6 fL 82.6 - 102.9 fL [place] Monocytes (Bld) [#/Vol] 0.33 10*3/uL [place] Monocytes/100 WBC (Bld) 6 % 3 - 12 % [place] Platelet mean volume (Bld) [Entitic vol] 10.3 fL 8.1 - 13.5 fL [place] Platelets (Bld) [#/Vol] 219 10*3/uL [place] Platelets (Bld) [#/Vol] NOT REPORTED [place] RBC (Bld) [#/Vol] 4.73 10*6/uL 3.95 - 5.1 1 m/uL [place] RBC morphology finding Nom (Bld) NOT REPORTED [place] Segmented neutrophils/100 WBC (Bld) 75 % High 36 - 65 % [place] Segs Absolute 4.52 [place] WBC (Bld) [#/Vol] 6.0 10*3/uL [place] WBC (Bld) [#/Vol] 0.0 10*3/uL 0.0 per 10 0 WBC [place] WBC Morphology NOT REPORTED [place] Comprehensive Metabolic Pane fracisco 03-10-2020 Albumin [Mass/Vol] 4.3 g/dL 3.5 - 5.2 g/dL [place] Albumin/Globulin [Mass ratio] 1.4 {ratio} [place] ALP [Catalytic activity/Vol] 66 U/L 35 - 104 U/L [place] ALT [Catalytic activity/Vol] 25 U/L 5 - 33 U/L [place] Anion gap [Moles/Vol] 12 mmol/L 9 - 17 mmol/L [place] AST [Catalytic activity/Vol] 14 U/L <32 [place] Bilirubin Ql (U) 0.87 mg/dL 0.3 - 1.2 mg/dL [place] Bun/Cre Ratio 26 High [place] Calcium [Mass/Vol] 9.4 mg/dL 8.6 - 10. 4 mg/dL [place] Chloride [Moles/Vol] 97 mmol/L Low 98 - 10 7 mmol/L [place] CO2 [Moles/Vol] 27 mmol/L 20 - 31 mmol/L [place] Creatinine [Mass/Vol] 0.86 mg/dL 0.5 - 0.9 mg/dL [place] GFR >60 >60 mL/min [place] GFR Non- >60 >60 mL/min [place] Glucose [Mass/Vol] 100 mg/dL High 70 - 99 mg/dL [place] Interpretation and review of laboratory results Abnormal [place] Potassium [Moles/Vol] 3.6 mmol/L Low 3.7 - 5.3 mmol/L [place] Protein [Mass/Vol] 7.4 g/dL 6.4 - 8.3 g/dL [place] Sodium [Moles/Vol] 136 mmol/L 135 - 144 mmol/L [place] Urea nitrogen [Mass/Vol] 22 mg/dL High 6 - 20 mg/dL [place] Lipid Panelon 03-10-2020 Cholesterol [Mass/Vol] 132 mg/dL <200 [place] Comment on above: Cholesterol Guidelines: <200 Desirable 200-240 Borderline >240 Undesirable Cholesterol in HDL [Mass/Vol] 51 mg/dL >40 [place] Comment on above: HDL Guidelines: <40 Undesirable 40-59 Borderline >59 Desirable Cholesterol in LDL [Mass/Vol] 66 mg/dL 0 - 130 mg/dL [place] Comment on above: LDL Guidelines: <100 Desirable 100-129 Near to/above Desirable 130-159 Borderline >159 Undesirable Direct (measured) LDL and calculated LDL are not interchangeable tests. Cholesterol in VLDL [Mass/Vol] NOT REPORTED 1 - 30 mg/dL [place] Cholesterol.total/Ch olesterol in HDL [Mass ratio] 2.6 {ratio} <5 [place] Triglyceride [Mass/Vol] 76 mg/dL <150 [place] Comment on above: Triglyceride Guidelines: <150 Desirable 150-199 Borderline 200-499 High >499 Very high Based on AHA Guidelines for fasting triglyceride, December 2011. Metabolic Panelon 03-10-2020 GFR/1.73 sq M predicted among non-blacks MDRD (S/P/Bld) [Vol rate/Area] [place] Comment on above: Stage 1: Some [...] body mass. Additional eGFR calculator available at: http://www.Scytl/multiple_crcl_2012.htm TSH without Reflexon 020 TSH Qn 2.77 m[IU]/L [place] EMILY DIGITAL SCREEN SELF REFE RRAL W OR WO CAD BILATERALOrdered By: Galindo Galvez on 02-28-2019 BIRADS - CATEGORY 2 Benign, no evidence of malignancy. Normal interval follow-up is recommended in 12 months. OVERALL ASSESSMENT - BENIGN A letter of notification will be sent to the patient regarding the results. The [employer] recommends annual mammograms for women 40 years and older. [employer] Phone: EXAMINATION: BILATERAL DIGITAL SCREENING MAMMOGRAM, 02/28/2019 TECHNIQUE: [...] skin thickening, nipple contour changes, malignant type microcalcifications , areas of architectural distortion, or significant interval changes are noted. FINDINGS: No evidence of malignancy. Advise annual screening mammography. BI-RADS 2 [employer] Phone: Devin, [employer] Incoming Radiant Results From [employer] - 02/28/2019 5:03 PM EST EXAMINATION: BILATERAL [...] skin thickening, nipple contour changes, malignant type microcalcifications , areas of architectural distortion, or significant interval changes are noted. FINDINGS: No evidence of malignancy. Advise annual screening mammography. BI-RADS 2 IMPRESSION: BIRADS - CATEGORY 2 Benign, no evidence of malignancy. Normal interval follow-up is recommended in 12 months. OVERALL ASSESSMENT - BENIGN A letter of notification will be sent to the patient regarding the results. The [employer] recommends annual mammograms for women 40 years and older. [employer] Phone: C-Reactive Proteinon 09-13-2 019 CRP [Mass/Vol] 9.7 mg/L High 0 - 5 mg/L [place] Interpretation and review of laboratory results Abnormal [place] CBC Auto Differentialon 11-10 Basophils (Bld) [#/Vol] 10*3/uL [place] Basophils/100 WBC (Bld) 0 % 0 - 2 % [place] Differential Type NOT REPORTED [place] Eosinophils (Bld) [#/Vol] 0.19 10*3/uL [place] Eosinophils/100 WBC (Bld) 3 % 1 - 4 % [place] Erythrocyte distribution width (RBC) [Ratio] 14.5 % High 11.8 - 14.4 % [place] Hematocrit (Bld) [Volume fraction] 39.7 % 36.3 - 47.1 % [place] Hemoglobin (Bld) [Mass/Vol] 12.5 g/dL 11.9 - 15.1 g/dL [place] Immature granulocytes (Bld) [#/Vol] 0.05 10*3/uL [place] Immature granulocytes (Bld) [#/Vol] 1 % High 0 [place] Interpretation and review of laboratory results Abnormal [place] Lymphocytes (Bld) [#/Vol] 1.00 10*3/uL Low [place] Lymphocytes/100 WBC (Bld) 14 % Low 24 - 43 % [place] MCH (RBC) [Entitic mass] 27.9 pg 25.2 - 33.5 pg [place] MCHC (RBC) [Mass/Vol] 31.5 g/dL 28.4 - 34.8 g/dL [place] MCV (RBC) [Entitic vol] 88.6 fL 82.6 - 102.9 fL [place] Monocytes (Bld) [#/Vol] 0.41 10*3/uL [place] Monocytes/100 WBC (Bld) 6 % 3 - 12 % [place] Platelet mean volume (Bld) [Entitic vol] 10.5 fL 8.1 - 13.5 fL [place] Platelets (Bld) [#/Vol] NOT REPORTED [place] Platelets (Bld) [#/Vol] 238 10*3/uL [place] RBC (Bld) [#/Vol] 4.48 10*6/uL 3.95 - 5.1 1 m/uL [place] RBC morphology finding Nom (Bld) NOT REPORTED [place] Segmented neutrophils/100 WBC (Bld) 76 % High 36 - 65 % [place] Segs Absolute 5.59 [place] WBC (Bld) [#/Vol] 0.0 10*3/uL 0.0 per 10 0 WBC [place] WBC (Bld) [#/Vol] 7.3 10*3/uL [place] WBC Morphology NOT REPORTED [place] Vital Signs Date Time Vital Sign Value Performing Clinician Faci lity 11-15-2022 21:34-0400 Body temperature 98.2 [degF] Sharri Camejo MD Work Phone: [facility] 11-15-2022 21:34-0400 Diastolic blood pressure 96 mm[Hg] Sharri Camejo MD Work Phone: [facility] [facility] 11-15-2022 21:34-0400 Heart rate 66 /min Sharri Camejo MD Work Phone: [facility] 11-15-2022 21:34-0400 Respiratory rate 18 /min Sharri Camejo MD Work Phone: [facility] 11-15-2022 21:34-0400 SaO2% (BldA) [Mass fraction] 98 % Sharri Camejo MD Work Phone: [facility] 11-15-2022 21:34-0400 Systolic blood pressure 173 mm[Hg] Sharri Camejo MD Work Phone: [facility] 04-21-2020 09:30-0500 BP Diastolic 59 mm[Hg] [place] 04-21-2020 09:30-0500 BP Systolic 133 mm[Hg] [place] 04-21-2020 09:30-0500 Pulse (Heart Rate) 58 /min [place] 04-21-2020 09:30-0500 Pulse Oximetry 98 % [place] 04-21-2020 09:30-0500 Respiratory Rate 16 /min [place] 04-21-2020 09:20-0500 Body Temperature 97.3 [degF] [place] 04-21-2020 06:45-0500 BMI (Body Mass Index) 60.13 kg/m2 [place], [place] 04-21-2020 06:45-0500 Body weight 161.39 kg [place] 04-21-2020 06:45-0500 Height 163.8 cm [place] Encounters Encounter Date Encounter Type Care Provider Facility Start: 08-16-2023 End: 08-16-2023 ambulatory SHAIKH GUY Not Available Start: 05-14-2023 End: 05-14-2023 ambulatory SHAIKH GUY Not Available Start: 04-26-2023 Orders Only Shaikh Guy DUMONT Work Phone: [facility] Comment on above: Essential hypertensi on (CMS/HCC) (Primary Dx); Hyperlipidemia, unspecified hyperlipidemia type (CMS/HCC); Moderate single current episode of major depressive disorder (HCC) (CMS/HCC); Urge incontinence Start: 11-16-2022 End: 11-16-2022 Emergency department patient visit SHARRI CAMEJO [facility] Start: 11-15-2022 End: 11-16-2022 Emergency department patient visit Sharri Caemjo MD Work Phone: [facility] ED Comment on above: Contusion of right g reat toe without damage to nail, initial encounter (Primary Dx) Start: 02-09-2022 End: 02-10-[address] HITESH PEREZ Facility:[facility] Start: 08-26-2020 End: 08-26-2020 Subsequent hospital visit by physician Marcelo Sleep Rm 1 [facility] Comment on above: Arrived Start: 06-16-2020 End: 06-16-2020 Patient encounter procedure [facility] Facility:[facility] Start: 06-15-2020 End: 06-17-2020 Subsequent hospital visit by physician Patsy Cat Scan Room [facility] CT Scan Comment on above: Other mechanical com plication of internal orthopedic device, unspecified orthopedic device type, initial encounter (HCC) Start: 06-14-2020 End: 06-15-2020 Patient encounter procedure [facility] Facility:[facility] Start: 06-14-2020 End: 06-15-2020 Patient encounter procedure [facility] Facility:[facility] Start: 06-11-2020 End: 06-11-2020 Subsequent hospital visit by physician Gris Graham [facility] Laboratory Start: 04-21-2020 End: 04-21-2020 Subsequent hospital visit by physician Galindo Galvez Work Phone: [facility] OR Comment on above: Abnormal uterine ble eding due to endometrial polyp (Primary Dx) Start: 04-15-2020 End: 04-19-2020 Subsequent hospital visit by physician Patsy Sanid19 Pat Screening Schedule [facility] PRE ADMIT Comment on above: Preoperative testing Start: 03-10-2020 End: 03-10-2020 Subsequent hospital visit by physician Gris JESSICA Laboratory Comment on above: Essential hypertensi on Start: 02-13-2020 End: 02-13-2020 Subsequent hospital visit by physician Gris JESSICA Laboratory Comment on above: PMB (postmenopausal bleeding); Women's annual routine gynecological examination Start: 08-08-2019 End: 08-08-2019 Subsequent hospital visit by physician Patsy Lab Drawing Room [facility] Laboratory Comment on above: Dysuria Start: 02-28-2019 End: 03-02-2019 Subsequent hospital visit by physician Mth [facility] Comment on above: Breast cancer screen ing by mammogram Start: 11-22-2018 End: 11-22-2018 Subsequent hospital visit by physician Gris Graham [facility] Comment on above: Bilateral cellulitis of [...] Phone: Start: 06-11-2020 C-reactive protein Scot mari Clinton Carter Work Phone: Start: 06-11-2020 Sedimentation rate r bc automated Darci Carter Work Phone: Start: 04-15-2020 COVID-19 Lv Jau regui Work Phone: Start: 03-10-2020 Assay of thyroid stimulating hormone tsh Dipdevendrakumar P Graham Work Phone: Start: 03-10-2020 Lipid panel Dipakkumar P Graham Work Phone: Start: 03-10-2020 Blood count complete auto&auto difrntl wbc Dipakkumar P Graham Work Phone: Start: 03-10-2020 Comprehensive metabo lic panel Dipakkumar P Graham Work Phone: Start: 02-13-2020 Microscopic observat ion [Identifier] in Cervix by Cyto stain Sharri Camejo MD Work Phone: Start: 02-28-2019 End: 02-28-2019 Screening digital breast tomosynthesis bi Galindo Galvez MD Work Phone: Start: 11-22-2018 Blood count complete auto&auto difrntl wbc Dipakkumar P Graham Work Phone: Start: 11-22-2018 C-reactive protein Ayaka kkumar P Graham Work Phone: Start: 03-31-2013 Colonoscopy Sharri King MD Work Phone: Plan of Treatment Date Care Activity Detail Author Start: 08-08-2026 DTaP/Tdap/Td vaccine (2 - Td or Tdap) DTaP/Tdap/Td vaccine (2 - Td or Tdap) [facility] Start: 08-08-2026 DTaP/Tdap/Td vaccine (2 - Td) DTaP/Tdap/Td vaccine (2 - Td) [place], [place] Start: 04-17-2026 Hepatitis C screen Hepatitis C scree n [place] Comment on above: Postponed from 09/14 (Unavailable) Start: 04-17-2026 Hepatitis C screening Hepatitis C sc reen [facility] Comment on above: Postponed from 09/14 (Unavailable) Postponed from 09/14 (Unavailable) Start: 04-17-2026 HIV screen HIV screen [place], [place] Comment on above: Postponed from 09/14 (Unavailable) Start: 04-17-2026 HIV screening HIV screen [facility] Comment on above: Postponed from 09/14 (Unavailable) Start: 03-08-2026 Screening for malign ant neoplasm of colon [facility] Start: 05-14-2023 End: 05-14-2023 Patient encounter procedure 05/14/2023 9:15 AM EST Office Visit [facility] [address] [place] [id number] Shaikh Tovar MD [address] [place] [address] [facility] Start: 03-31-2023 Colon cancer screen colonoscopy Colon cancer screen colonoscopy [place], [place] Start: 03-31-2023 Screening for malign ant neoplasm of colon [facility] Start: 02-12-2023 Screening for malign ant neoplasm of cervix [facility] Start: 11-10-2022 Influenza vaccination Influenza Vacc ine (#1) [facility] Start: 10-10-2022 Influenza vaccination Flu vaccine (# 1) [facility] Start: 09-27-2022 Lipid screen Lipid screen [place] Start: 01-18-2022 Depression Monitoring Depression Mon itoring [facility] Start: 06-27-2021 Cervical cancer screen Cervical canc er screen [place] Start: 06-27-2021 Screening for malign ant neoplasm of cervix Cervical cancer [place] Start: 06-11-2021 Creatinine measurement Creatinine mo [facility] [employer] Phone: Start: 06-11-2021 Potassium monitoring Potassium monit [facility] [employer] Phone: Start: 04-05-2021 COVID-19 Vaccine (4 - Booster for Pfizer series) COVID-19 Vaccine (4 - Booster for Pfizer series) [facility] Start: 03-10-2021 Creatinine measurement Creatinine mo [place] Start: 03-10-2021 Lipid panel [facility] Start: 03-10-2021 Potassium monitoring Potassium monit [place], [place] Start: 02-28-2021 Breast cancer screen Breast cancer s [facility] [employer] Phone: Start: 02-28-2021 Screening for malign ant neoplasm of breast Breast cancer screen [facility] Start: 09-30-2020 End: 09-30-2020 Patient encounter procedure 09/30/2020 Office Visit Primary Care Gris Graham MD [address] [place], [place] [id number] [phone] [facility] Start: 06-29-2020 End: 06-29-2020 Office Visit 06/29/2020 Office Visit Primary Care Gris Graham MD [address] [place] [address] [address] [place] [address] [phone] [facility] Start: 06-22-2020 COVID-19 Vaccine (2 - Pfizer 2-dose series) COVID-19 Vaccine (2 - Pfizer 2-dose series) Work Phone: Start: 06-18-2020 End: 06-18-2020 Office Visit 06/18/2020 Office Visit Gris Graham MD [address] [place] [address] [address] [place] [address] [phone] [facility] Start: 06-03-2020 End: 06-03-2020 Office Visit 06/03/2020 Office Visit Family Medicine Gris Graham MD [address] [place] [address] [address] [place] [address] [phone] Gris Graham MD Start: 05-05-2020 End: 05-05-2020 Office Visit 05/05/2020 Office Visit Obstetrics and Gynecology Galindo Galvez MD [address] [place] [address] [phone] [facility] Start: 04-21-2020 End: 04-21-2020 Hospital Encounter [facility] OR Comment on above: DILATATION AND CURET TAGE HYSTEROSCOPY, POLYPECTOMY Start: 03-17-2020 End: 03-17-2020 Office Visit 03/17/2020 Office Visit Obstetrics and Gynecology Galindo Galvez MD [address] [place], [place] [id number] [facility] Start: 03-02-2020 End: 03-02-2020 Office Visit 03/02/2020 Office Visit Gris Medina MD [address] [place] [phone] Gris Graham MD Start: 02-29-2020 Screening for malign ant neoplasm of breast Mammogram [facility] Start: 11-11-2019 Influenza vaccination Flu vaccine (# 1) [place] Start: 11-04-2019 End: 11-04-2019 Office Visit 11/04/2019 Office Visit Gris Medina MD [address] [place] [address] [phone] Gris Graham MD Start: 07-23-2019 Creatinine measurement Creatinine mo [place]itoring [place] Start: 07-23-2019 Creatinine monitoring Creatinine mon [place]oring [place] Start: 07-23-2019 Potassium monitoring Potassium monit [place]ing [place] Start: 05-01-2019 End: 05-01-2019 Patient encounter procedure 05/01/2019 Office Visit Gris Medina MD [address] [address] Gris Graham MD Start: 12-24-2018 End: 12-24-2018 Office Visit 12/24/2018 Office Visit Gris Medina MD [address] [place] [phone] Gris Graham MD Start: 11-29-2018 End: 11-29-2018 Office Visit 11/29/2018 Office Visit Gris Medina MD [address] [place] [phone] Gris Graham MD Start: 11-10-2018 Influenza vaccination Flu vaccine (# 1) [place] Start: 09-27-2018 Lipid panel Lipid screen [place], [place] Start: 09-27-2018 Lipid screen Lipid screen [facility] Work Phone: Start: 05-04-2018 Breast cancer screen Breast cancer s marv [facility] [place] Start: 2012 Shingles Vaccine (1 of 2) Shingles Vaccine (1 of 2) [facility] Start: 09-15-2007 Screening for malign ant neoplasm of colon [facility] Start: 2002 Diabetes screen Diabetes screen [employer] Phone: Start: 1992 Screening for malign ant neoplasm of cervix [facility] Start: 09-15-1983 Screening for malign ant neoplasm of cervix Pap Smear [facility] Start: 1978 COVID-19 Vaccine (1) COVID-19 Vaccin e (1) [employer] Phone: Start: 1962 Screening for malign ant neoplasm of colon [facility] Continuous pulse oximetry Pulse oximetry, continuous Respiratory Care Routine Every 4hr until discontinued starting 04/21/2020 [place] Comment on above: Every 4hr until disc ontinued starting 04/21/2020 End: 11-22-2018 Culture Blood #1 Culture Blood #1 Microbiology Routine Bilateral cellulitis of lower leg 1 Occurrences starting 11/22/2018 until 11/22/2018 [place] Comment on above: 1 Occurrences starti ng 11/22/2018 until 11/22/2018 Culture Blood #1 Culture Blood # 1 Microbiology Routine Bilateral cellulitis of lower leg 11/22/2018 11:40 AM T [place] Culture, Anaerobic a nd Aerobic Culture, Anaerobic and Aerobic Microbiology Routine 06/11/2020 11:04 AM [facility] [employer] Phone: End: 08-08-2019 Culture, Urine Culture, Urine Microbiology Routine Dysuria 1 Occurrences starting 08/08/2019 until 08/08/2019 [place] Comment on above: 1 Occurrences starti ng 08/08/2019 until 08/08/2019 Culture, Urine Culture, Urine Microbiology Routine Dysuria 08/08/2019 8:28 AM [place], [place] End: 02-13-2020 Cytopathology procedure, preparation of smear, genital source PAP SMEAR Lab STAT Women's annual routine gynecological examination 1 Occurrences starting 02/13/2020 until 02/13/2020 [place], [place] Comment on above: 1 Occurrences starti ng 02/13/2020 until 02/13/2020 Oxygen therapy [[facility] Data Set] Initiate Oxygen Therapy Protocol Respiratory Care Routine Daily until discontinued starting 04/21/2020 [facility] [place] Comment on above: Daily until disconti nued starting 04/21/2020 Phase I & II - meter ed glucose Phase I & II - metered glucose Point of Care Testing Routine As Needed until discontinued starting 04/21/2020 [facility] [place] Comment on above: As Needed until disc ontinued starting 04/21/2020 End: 08-26-2020 Sleep Study with PAP Titration Sleep Study with PAP Titration Sleep Center Routine One Time for 1 Occurrences starting 08/26/2020 until 08/26/2020 [facility] [employer] Phone: Comment on above: One Time for 1 Occur rences starting 08/26/2020 until 08/26/2020 Spirometry panel Incentive brian metry Respiratory Care Routine Every 2hr while awake until discontinued starting 04/21/2020 [place], [place] Comment on above: Every 2hr while awak e until discontinued starting 04/21/2020 End: 02-13-2020 Surgical Pathology Surgical Pathology Lab Routine PMB (postmenopausal bleeding) 1 Occurrences starting 02/13/2020 until 02/13/2020 [place] Comment on above: 1 Occurrences starti ng 02/13/2020 until 02/13/2020 End: 02-13-2020 Surgical Pathology Surgical Pathology Lab Routine Once for 1 Occurrences starting 02/13/2020 until 02/13/2020 [place] Comment on above: Once for 1 Occurrenc es starting 02/13/2020 until 02/13/2020 Surgical Pathology Surgical Path ology Lab Routine Release Upon Ordering for 1 Occurrences starting 04/21/2020 [place] Comment on above: Release Upon Orderin g for 1 Occurrences starting 04/21/2020 Immunizations Immunization Date Immunization Notes Care Provider Fa cility 02-26-2020 influenza virus vacc ine, unspecified formulation Gris MOROCHO [facility] Workable 11-29-2018 influenza, injectabl e, quadrivalent, contains preservative Mth Fl [employer] Phone: 12-03-2017 influenza, injectabl e, quadrivalent, preservative free [facility], [place] 12-01-2016 influenza, seasonal, injectable, preservative free [place], [place] 08-08-2016 tetanus toxoid, redu desean diphtheria toxoid, and acellular pertussis vaccine, adsorbed [facility] 12-06-2015 Influenza Vaccine, unspecified formulation [facility] 12-15-2014 influenza virus vacc ine, unspecified formulation [facility] 11-28-2013 influenza virus vacc ine, unspecified formulation [place], [place] Payers Date Payer Category Payer Unknown 2015 Unknown xxxxxxxxxxxx [id number] 2015 Unknown [employer] [id number] 2015-Present [phone] [address] [place] [address] [id number] 1962 Unknown [id number] 1962 Unknown [id number] 1962 Unknown [id number] 1962 Unknown [id number] 1962 Unknown [id number] 1962 Unknown [id number] 1962 Unknown [id number] 1962 Unknown [id number] 9 1959 Unknown [id number] Social History Date Type Detail Facility Start: 11-08-2018 End: 04-06-2023 Tobacco smoking status NHIS Never smoker [employer] Start: 11-08-2018 End: 04-06-2023 Alcohol intake No [employer] Start: 03-26-2013 Alcohol Comment no alcohol for 19 years [employer] Sex Assigned At Not on file [employer] Start: 08-07-2019 End: 11-15-2022 Alcohol intake Current non-drinker of alcohol (finding) [employer] Phone: Start: 1960 Sex Assigned At Female [employer] Phone: Exposure to SARS-CoV -2 (event) Unable to assess [employer] Start: 03-26-2013 End: 02-13-2020 Tobacco use and exposure Never used [employer] Exposure to SARS-CoV -2 (event) Not sure [employer] Start: 09-27-2020 History SDOH Financial 5 [facility] [employer] Start: 09-27-2020 History SDOH Food Worry 1 [facility] [employer] Start: 09-27-2020 History SDOH Transport Non-Med 2 [employer] Start: 04-06-2023 History of Social function [facility] Start: 01-30-2023 Gender identity Identifies as female gender (finding) [facility] Start: 01-30-2023 Sexual orientation Heterosexual (finding) [facility] Discharge instructions 11-16-2022 Discharge InstructionsAttachments Note [...] attachments cannot be sent through Care Everywhere.Contusion (Somali)RICE: General Info (Somali)documented in this encounter [facility] [employer] Evaluation note Note Date & Type Note Facility Evaluation note Diagnosis Breast cancer screening by mammogram documented in this encounter [employer] Phone: Evaluation note Note Date & Type Note Facility Evaluation note Diagnosis Contusion of right great toe without damage to nail, initial encounter- Primary documented in this encounter [facility] [facility] Evaluation note Note Date & Type Note Facility Evaluation note Diagnosis Essential hypertension (CMS/HCC)- Primary Unspecified essential hypertension Hyperlipidemia, unspecified hyperlipidemia type (CMS/HCC) Moderate single current episode of major depressive disorder (HCC) (CMS/HCC) Urge incontinence documented in this encounter [facility] Assessments Diagnosis Bilateral cellulitis of lower leg Cellulitis and abscess of leg, except foot Diagnosis Dysuria Diagnosis PMB (postmenopausal bleeding) Postmenopausal bleeding Women's annual routine gynecological examination Diagnosis Essential hypertension Unspecified essential hypertension Diagnosis Preoperative testing Preoperative examination, unspecified Diagnosis Abnormal uterine bleeding due to endometrial polyp- Primary Diagnosis Other mechanical complication of internal orthopedic device, unspecified orthopedic device type, initial encounter ([facility]) Advance Directives No Advanced Directives Records FoundDocuments on File Type Date Recorded Patient Animal Park Code Enforcement Officer Expl anation Advance Directives and Living Will Power of Automotive Parts Coordinator Latest Code Status on File Code Status Date Activated Date Inactivated Comments Full Code 01/13/2015 10:27 AM 01/19/2015 12:38 PM Full Code 01/11/2015 1:16 PM 01/13/2015 10:27 AM Full Code 04/09/2013 8:21 AM 04/09/2013 12:03 PM Documents on File Type Date Recorded Patient Animal Park Code Enforcement Officer Expl anation ACP-Advance Directive ACP-Power of Automotive Parts Coordinator Documents on File Type Date Recorded Patient Animal Park Code Enforcement Officer Expl anation ACP-Advance Directive ACP-Power of Automotive Parts Coordinator Latest Code Status on File Code Status [...] Documents on File Type Date Recorded Patient Animal Park Code Enforcement Officer Expl anation Advance Directives and Living Will Power of Automotive Parts Coordinator Latest Code Status on File Code Status [...] In the meantime, you may take an [id number] analgesic (Tylenol, Anacin, etc.) and use a [...] 14. Accompanied by a responsible adult. Yes Lucy Dunn RN - 04/21/2020 9:50 AM EST Pt requested to use restroom prior to changing, ambulated well with standby assist, voided without difficulty, but states she did have some burning, pt states there was very little vaginal bleeding. Ambulated back to recliner to go over discharge instructions. Lucy Dunn RN - 04/21/2020 9:50 AM EST Pt's order sheet from Dr. Galvez on chart states to hold eliquis 4 days preop and 4 days post op. Pt states she was told she could resume eliquis tomorrow. This RN called into OR to verify with Dr. Galvez when he wants Eliquis resumed and he stated she can resume it anytime. Mariela Webber RN - 04/16/2020 9:46 AM EST Positive [...] OR WO CAD BILATERAL Galindo Galvez MD [address] [place] [address] [address] [place] [address] Specialty Diagnoses / Procedures Referred By Contac t Referred To Contact Diagnoses Hyperlipidemia, unspecified hyperlipidemia type ([facility]/HCC) Shaikh Tovar MD [address] [facility] [place] [address] Referral ID Status Reason Start Date Expiration Date Visits Re quested Visits Authorized [id number] Closed 1 1 Additional Source Comments Reason for Visit (unrecogniz ed section and content) Status Reason Specialty Diagnoses / Procedures Referre d By Contact Referred To Contact Diagnoses PMB (postmenopausal bleeding) PMB, SUSPECTED POLYP Procedures MI HYSTEROSCOPY,W/ENDO BX DILATATION AND CURETTAGE HYSTEROSCOPY, POLYPECTOMY Galindo Galvez MD [address] [place] [address] [address] [place] [address] Status Reason Specialty Diagnoses / Procedures Referre d By Contact Referred To Contact Closed Radiology Diagnoses Other mechanical complication of internal orthopedic device, unspecified orthopedic device type, initial encounter ([facility]) Procedures CT FOOT RIGHT W CONTRAST CT FOOT RIGHT W WO CONTRAST Darci Carter, DPM [address] [place] [address] [facility] [address] [place] [address] Status Reason Specialty Diagnoses / Procedures Referred By Contact Referred To Contact Closed Sleep Center Diagnoses BHAVIN on CPAP Procedures Sleep Study with PAP Titration Gris Graham MD [address] [place] [address] [address] [place] [address] Status Reason Specialty Diagnoses / Procedures Referre d By Contact Referred To Contact Closed Radiology Diagnoses Breast cancer screening by mammogram Procedures EMILY DIGITAL SCREEN SELF REFERRAL W OR WO CAD BILATERAL Galindo Galvez MD [address] [place] [address] [address] [place] [address] Reason Comments Toe Pain Pain at right [...] section and content) DATE CREATED AUTHOR 06/24/2020 [facility] DATE CREATED AUTHOR AUTHOR'S ORGANIZ ATION 03/03/2022 [facility] DATE CREATED AUTHOR AUTHOR'S ORGANIZ ATION 11/16/2022 [facility] DATE CREATED AUTHOR AUTHOR'S ORGANIZ ATION 08/18/2023 [facility] dical Specialists [employer] Care Teams (unrecognized sec tion and content) Scalehouse Attendant Relationship Specialty Start Date End Date Shaikh Tovar MD [address] [place] [address] PCP - General 01/23/22 Scalehouse Attendant Relationship Specialty Start Date End Date Shaikh Tovar MD [address] [place] [address] PCP - General Internal Medicine 04/06/23 FOR RECORDS PERTAINING TO PATIENTS WHO ARE [...] BE BASED ON THE PRIMARY CLINICAL RECORDS. [facility]. provides no warranty or guarantee of the accuracy or completeness of information in this document.
[2023-08-25 09:55] LABS: Basophils Percent Auto 0.5 % (0.2-2.0); Eosinophils Absolute Auto 0.2 10^3/uL (0.0-0.7); Eosinophils Percent Auto 2.5 % (0.9-7.0); Hematocrit 39.7 % (36.0-48.0); Hemoglobin 12.8 g/dL (12.0-16.0); Immature Granulocytes Abs Auto 0.01 10^3/uL (0.00-0.03); Immature Granulocytes Pct Auto 0.2 % (0.0-0.5); Lymphocytes Absolute Auto 1.1 10^3/uL (1.2-3.8); Lymphocytes Percent Auto 18.2 % (20.5-60.0); Mean Corpuscular HGB Conc 32.2 g/dL (29.9-35.2); Mean Corpuscular Hemoglobin 27.8 pg (26.7-34.0); Mean Corpuscular Volume 86.1 fL (81.0-99.0); Mean Platelet Volume 10.9 fL (9.5-13.5); Monocytes Absolute Auto 0.3 10^3/uL (0.3-0.8); Neutrophils Absolute Auto 4.4 10^3/uL (1.4-6.5); Neutrophils Percent Auto 73.6 % (43.0-75.0); Platelet Count 214 10^3/uL (150-450); Red Blood Count 4.61 10^6/uL (4.20-5.40); Red Cell Distribution Width 14.7 % (11.0-15.0)
[2023-08-25 10:12] LABS: Alanine Aminotransferase 25 U/L (14-59); Albumin Level 3.7 g/dL (3.4-5.0); Alkaline Phosphatase 80 U/L (46-116); Anion Gap 10.9; Aspartate Amino Transferase 11 U/L (15-37); BUN Creatinine Ratio 16.5; Bilirubin Total 1.3 mg/dL (0.2-1.0); Calcium 9.1 mg/dL (8.5-10.1); Carbon Dioxide 27.3 mmol/L (21.0-32.0); Chloride 103 mmol/L (98-107); Chol HDL Ratio 3.7; Cholesterol 153 mg/dL (<=200); Estimated GFR (African America >60 (>=60); Estimated GFR (Non-African Ame >60 (>=60); Globulin 3.6 g/dL; Glucose 110 mg/dL (74-106); HDL Cholesterol 41 mg/dL (40-60); LDL Cholesterol Calculated 86.6 mg/dL; Potassium 4.2 mmol/L (3.5-5.1); Sodium 137 mmol/L (136-145); Total Protein 7.3 g/dL (6.4-8.2); Triglycerides 127 mg/dL (<=150); VLDL CHOLESTEROL 25.4 mg/dL
== END 2023-08-25 09:29 | disposition home or self-care (01) ==
PROVIDERS: PCP Internal Medicine; Visit Provider Internal Medicine
DX: E78.5 Hyperlipidemia, unspecified (principal); I10 Essential (primary) hypertension
CPT/HCPCS: 36415; 80053; 80061; 85025